=== PATIENT | male | born 1980 | race Caucasian/White ===

== ENCOUNTER → 2019-09-05 18:08 | Outpatient (BNVA) | payer BC, SELFPAY | PROVIDERS: Family Provider Counselor Professional; Visit Provider Nurse Practitioner Family | DX: S89.91XA Unspecified injury of right lower leg, initial encounter (principal); X58.XXXA Exposure to other specified factors, initial encounter | CPT/HCPCS: 73562 ==

== ENCOUNTER → 2020-05-12 12:43 | Outpatient (BNVA) | payer BC, SELFPAY | PROVIDERS: Family Provider Counselor Professional; Visit Provider Nurse Practitioner Family | DX: L57.0 Actinic keratosis (principal); N39.0 Urinary tract infection, site not specified; R35.1 Nocturia | CPT/HCPCS: 81000; 84154 ==

== ENCOUNTER → 2020-11-26 08:45 | Outpatient (BNVA) | payer OTHER, SELFPAY | PROVIDERS: Family Provider Counselor Professional; Visit Provider Counselor Professional | DX: F31.12 Bipolar disorder, current episode manic without psychotic features, moderate (principal) | CPT/HCPCS: 90791 ==

== ENCOUNTER → 2020-12-24 12:03 | Outpatient (BNVA) | payer OTHER, SELFPAY | PROVIDERS: Family Provider Counselor Professional; Visit Provider Psychiatry & Neurology Psychiatry | DX: Z03.89 Encounter for observation for other suspected diseases and conditions ruled out (principal); Z72.820 Sleep deprivation; F10.11 Alcohol abuse, in remission; F41.9 Anxiety disorder, unspecified; F17.200 Nicotine dependence, unspecified, uncomplicated; Z79.899 Other long term (current) drug therapy | CPT/HCPCS: 80053; 80061; 83036; 84443 ==

== ENCOUNTER 2021-12-03 09:56 | Emergency (ER) | payer OTHER, SELFPAY ==
[2021-12-03 10:01] VITALS: BP 120/77; PULSE 111; RESP 16; TEMP 36.6; O2SAT 97; BMI 23.8
[2021-12-03 11:25] VITALS: BP 103/71; PULSE 96; RESP 16; O2SAT 96
--- NOTE | 2021-12-03 11:27 | CT_ITS ---
WS: [id number] CT HEAD TECHNIQUE: Noncontrast CT of the head obtained from the skullbase to the vertex. CLINICAL INFORMATION: eval for mass COMPARISON: None. DLP: 1795.[address] scans at [facility] use at least one of these dose optimization techniques: automated e xposure control; mA and/or kV adjustment per patient size (includes targeted exams where dose is matc hed to clinical indication); or iterative reconstruction. FINDINGS: No evidence of intracranial hemorrhage or mass effect. Ventricular system and basal cisterns are michele nt. No extra-axial fluid collections. No evidence of mass or mass effect. Normal osborne-white different iation. Paranasal sinuses and mastoid air cells are well aerated. .Normal visualized soft tissues. CT/CT head wo con* [id number] IMPRESSION: 1. No evidence of intracranial hemorrhage or mass effect. 2. Normal osborne-white differentiation. 3. No acute intracranial findings.
--- NOTE | 2021-12-03 11:27 | W.ED.GENADLT ---
HPI - General Adult General: Chief complaint: General Medical Stated complaint: loss of appetite / double vision Time Seen by Provider: 12/03/21 11:04 History of Present Illness: Patient is a 41-year-old male with history of BPH currently waiting for TURP procedure presenting to the emergency room with multiple complaints today including floaters in vision, occasional word finding difficulty, monocular double vision, and occasional loss of depth perception. Patient tells me for the last 9 months, he has had right-sided monocular diplopia that comes on intermittently lasting for few seconds at a time. In the last month, patient has noted significant photophobia to bright light and has occasionally noticed spiders and floaters in his eyes. Patient denies any curtain falling sensation, amaurosis fugax, significant eye pain, binocular diplopia, focal weakness in the arms or legs, facial droop or slurring of speech. Patient tells me that he is anxious about getting his TURP procedure for his enlarged prostate. Patient tells me that occasionally when he is driving symptoms he cannot see depth perception in either of his eyes. Earlier last week, patient was talking to a coworker when suddenly he had difficulty finding words and his coworker could not comprehend him. Patient is concerned about that. Patient was unclear how long that lasted for. Onset:chronic Duration:ongoing Location:home Severity:moderate Associated symptoms: Deny chest pain, dyspnea, nausea, rash, palpitations or vomiting Review of Systems Const: Denies: fever(s) or chills Eyes: Reports: change in vision, photophobia, floaters, seeing flashes and other (+loss of depth perception) ENMT: Denies: mouth pain Card: Denies: chest pain or palpitations Resp: Denies: dyspnea or non-productive cough GI: Denies: abdominal pain, nausea, vomiting or diarrhea : Denies: dysuria Musc: Denies: extremity pain Skin/Breast: Denies: rash or new lesions Neuro: Reports: other (+occasional word finding difficulty); Denies: weakness in extremities Psych: Reports: other (Normal mood) [place]/Lymph: Denies: easy bruising PFS ED PFSH: Medical History Alcohol use disorder, mild, in sustained remission, abuse Anxiety Family History Denies family history of Diabetes Dementia Hypertension Social History Smoking and tobacco status: current every day smoker Alcohol intake: never Physical Exam Const: COMMON NORMALS: alert HENMT: COMMON NORMALS: atraumatic HEAD & SCALP: atraumatic MOUTH: moist mucous membranes not abnormal Eye: COMMON NORMALS: EOMs intact bilaterally and conjunctivae normal CONJUNCTIVA: Yes conjunctivae normal OTHER: 20/30 R eye 20/30 L eye Neck/C-Spine: COMMON NORMALS: full ROM and supple Resp: COMMON NORMALS: normal respiratory effort and clear to auscultation bilaterally AUSCULTATION: clear to auscultation bilaterally Cardio: COMMON NORMALS: regular rate RATE: regular rate GI: COMMON NORMALS: Soft to palpation and non-tender PALPATION: Yes Soft to palpation Extremity: COMMON NORMALS: full ROM Neuro: SENSORIUM/ORIENTATION: Yes alert MOTOR EXAM: No Abnormal motor strength present and Other motor observations present (no focal motor deficits) OTHER: Mental status? Awake, alert, and oriented to self, year, month, location, and situation.? Following simple axial and appendicular commands.? Has appropriate fund of knowledge, comprehension, and insight.? Able to recall and understands pertinent aspects of medical history and current treatment status.? ? Language? Speech is fluent without word-finding difficulties.? Intact naming, expression, salon receptionist, and repetition.? ? Cranial nerves? 2,3,4,6: PERRL, EOMI with no nystagmus. 5: Intact sensation to light touch, symmetric? 7: Smile symmetrical, no facial droop.? 8: Hearing grossly intact.? 9,10: Normal palate movement.? 11: Normal strength in trapezius bilaterally 12: Tongue protrudes midline.? ? Motor examination? Normal bulk & tone. Strength as follows (R/L): Delts (5/5), Biceps (5/5), Triceps (5/5), Wrist ext (5/5), hip flexors (5/5), plantarflexors (5/5), dorsiflexors (5/5). ? Sensation? Light Touch: Grossly intact and equal in upper and lower extremities bilaterally? Romberg: Negative.? Distal joint position sense intact ? Coordination? [id number]-[id number]-finger movements intact without dysmetria or past-pointing.? Rapid fingertaps: preserved amplitude without decriment.? No tremor, myoclonus or truncal ataxia.? ? Gait/stance? Steady, normal narrow base gait with appropriate arm swing and turning.? Tandem gait without hesitation or loss of balance. Psych: COMMON NORMALS: speech normal SPEECH: Yes normal speech MOOD & AFFECT: Yes euthymic mood Course Vital Signs: Vital signs: Vital Signs Temperature 98 F 12/03/21 10:01 Pulse Rate 91 12/03/21 13:00 Respiratory Rate 16 12/03/21 13:00 Blood Pressure 110/69 12/03/21 13:00 Pulse Oximetry 98 12/03/21 13:00 [facility] - General Adult Medical Decision Making 41-year-old male presents emergency room with complaints of multiple ocular complaints and word finding difficulty which has been going >4 weeks. On physical exam, patient is neurologically intact. Vision is 20 out of 20 in both eyes today. Lab work-up is unremarkable. Patient appears to be hemoconcentrated based on lab and urine. Patient received [address] head is negative for any acute findings of mass. At the present time, do not suspect stroke/TIA, retinal detachment, acute CRAO/CRVO, or acute occular pathologies. I have given patient follow up with our family caseworker to be seen by our outpatient Ophthalmology. Patient aware of a call from our family caseworker to schedule for appointment(s) and verbalizes understanding of the importance of following up. Disposition: Discharge. Patient counseled regarding diagnostic impression, treatment plan. Patient given ED strict return precautions to return for continuation, worsening, or development of new symptoms. Instructed to f/u w/ Otphalmology regarding symptoms today. Patient verbalized understanding. Patient is given strict return precaution for any signs of visual blindness, binocular diplopia, focal weakness in the arms or legs, significant headache, eye pain/redness, blindness, or any new concerning complaints. Lab Data : 12/03/21 11:25 12/03/21 12:[address] 12/03/21 11:27 IMPRESSION: 1. No evidence of intracranial hemorrhage or mass effect. 2. Normal osborne-white differentiation. 3. No acute intracranial findings. Laboratory Results WBC 5.8 10^3/uL (4.0-10.0) 12/03/21 11:25 RBC 5.82 10^6/uL (4.1-5.3) H 12/03/21 11:25 Hgb 17.6 g/dL (11.7-16.6) H 12/03/21 11:25 Hct 51.3 % (42.0-52.0) 12/03/21 11:25 MCV 88.1 fl (80-94) 12/03/21 11:25 MCH 30.2 pg (28.0-34.0) 12/03/21 11:25 MCHC 34.3 g/dL (30.0-36.0) 12/03/21 11:25 RDW 13.2 % (12.1-15.1) 12/03/21 11:25 Plt Count 249 10^3/cmm (130-400) 12/03/21 11:25 MPV 9.7 fL (7.4-10.4) 12/03/21 11:25 Neut % (Auto) 53.2 % 12/03/21 11:25 Lymph % (Auto) 27.8 % 12/03/21 11:25 [place] % (Auto) 8.7 % 12/03/21 11:25 Eos % (Auto) 9.5 % 12/03/21 11:25 Baso % (Auto) 0.5 % 12/03/21 11:25 Neut # (Auto) 3.06 10^3/uL (1.8-7.7) 12/03/21 11:25 Lymph # (Auto) 1.6 10^3/uL (0.8-4.8) 12/03/21 11:25 [place] # (Auto) 0.5 10^3/uL (0.2-0.9) 12/03/21 11:25 Eos # (Auto) 0.6 10^3/uL (0.0-0.8) 12/03/21 11:25 Baso # (Auto) 0.0 10^3/uL (0.0-0.1) 12/03/21 11:25 Nucleated RBC % (auto) 0 % 12/03/21 11:25 Nucleated RBCs # 0.0 /100WBC 12/03/21 11:25 Sodium 139 mmol/L (136-145) 12/03/21 12:13 Potassium 4.4 mmol/L (3.5-5.1) 12/03/21 12:13 Chloride 106 mmol/L (98-107) 12/03/21 12:13 Carbon Dioxide 26 mmol/L (22-29) 12/03/21 12:13 Anion Gap 11.4 (5-19) 12/03/21 12:13 BUN 17 mg/dL (6-20) 12/03/21 12:13 Creatinine 1.0 mg/dL (0.7-1.2) 12/03/21 12:13 GFR Calculation 81.9 mL/min (90-130) L 12/03/21 12:13 Glucose 97 mg/dL (65-115) 12/03/21 12:13 Calculated Osmolality 289 mOsm/kg (285-295) 12/03/21 12:13 Calcium 8.8 mg/dL (8.5-10.5) 12/03/21 12:13 Total Bilirubin 1.3 mg/dL (0.15-1.2) H 12/03/21 12:13 AST 19 U/L (0-40) 12/03/21 12:13 ALT 34 U/L (0-41) 12/03/21 12:13 Alkaline Phosphatase 60 IU/L (40-130) 12/03/21 12:13 Total Protein 5.7 g/dL (6.6-8.7) L 12/03/21 12:13 Albumin 3.8 g/dL (3.5-5.2) 12/03/21 12:13 Globulin 1.9 g/dL (1.3-4.6) 12/03/21 12:13 Lipase 33 U/L (13-60) 12/03/21 12:13 Urine Color Dark yellow (Yellow) 12/03/21 11:18 Urine Appearance Clear (CLEAR) 12/03/21 11:18 Urine pH 5 (5-7) 12/03/21 11:18 Ur Specific [place] 1.015 (1.005-1.030) 12/03/21 11:18 Urine Protein Neg (Negative) 12/03/21 11:18 Urine Glucose (UA) Norm (Normal) 12/03/21 11:18 Urine Ketones 1+ (Negative) H 12/03/21 11:18 Urine Blood Neg (Negative) 12/03/21 11:18 Urine Nitrate Negative (Negative) 12/03/21 11:18 Urine Bilirubin Neg (Negative) 12/03/21 11:18 Urine Urobilinogen Neg mg/dL (Negative) 12/03/21 11:18 Ur Leukocyte Esterase Negative (Negative) 12/03/21 11:18 Imaging Data Other Imaging: Radiologist's impression: [address] [address] [address] Scan Report Signed Patient: Jared Zazueta Unit #: [id number] : 1980 Age/Sex: 41 / M ADM Date: 12/03/21 Loc: ER Room/Bed: Attending Dr: Ordering Provider/Ordering MD: Sukumar Romero MD Date of Service: 12/03/21 Procedure(s): CT head wo con* [id number] Accession Number(s): [id number] Report Number: [id number] WS: [id number] CT HEAD TECHNIQUE: Noncontrast CT of the head obtained from the skullbase to the vertex. CLINICAL INFORMATION: eval for mass COMPARISON: None. DLP: 1795.[address] scans at [facility] use at least one of these dose optimization techniques: automated exposure control; mA and/or kV adjustment per patient size (includes targeted exams where dose is matched to clinical indication); or iterative reconstruction. FINDINGS: No evidence of intracranial hemorrhage or mass effect. Ventricular system and basal cisterns are patent. No extra-axial fluid collections. No evidence of mass or mass effect. Normal osborne-white differentiation. Paranasal sinuses and mastoid air cells are well aerated. .Normal visualized soft tissues. CT/CT head wo con* [id number] IMPRESSION: ? 1.? No evidence of intracranial hemorrhage or mass effect. 2.? Normal osborne-white differentiation. 3.? No acute intracranial findings. ? Dictated By: Paco Millard MD Signed By: Paco Millard MD Signed Date/Time: 12/03/21 1328 DD/ 1324 Discharge Plan Discharge Patient Disposition: Home Clinical Impression: Photophobia, Visual blurriness, Word finding problem Condition: Stable Prescriptions: No Action naproxen 500 mg tablet 500 mg PO BID PRN (Reason: pain) Qty: 30 0RF fluticasone propion-salmeterol [Advair Diskus] 100-50 mcg/dose blister with device 1 inh INHALATION BID Qty: 60 3RF albuterol sulfate 90 mcg/actuation HFA aerosol inhaler 2 puff INHALATION QID Qty: 18 2RF trazodone 50 mg tablet 50 mg PO DAILY 30 Days Qty: 30 3RF Rx Instructions: take a-half or whole tab po HS prn sleep. tamsulosin 0.4 mg capsule See Rx Instructions .ROUTE .COMPLEX Qty: 30 3RF Dose Instruction: TAKE ONE CAPSULE BY MOUTH DAILY Rx Instructions: TAKE ONE CAPSULE BY MOUTH DAILY Discharge Orders: Discharge ED (Routine); Ordered 12/03/21 Ordered By: Sukumar Romero Referrals: Erlinda Ho LPC [Therapist] - Jordan Stock MD [Physician] - Discharge Diet: Advance as tolerated Discharge Activity: Increase activity as tolerated Activity Restrictions/Additional Instructions: Our family caseworker will have you follow-up with Dr. Chaves in the next few days for your vision changes. You would be expected to have a phone call with our family caseworker who will put you on the schedule. You can expect a call from us in the next 2-3 days. If you don't hear from us, call us back in the emergency room at [phone]. Come back to the emergency room for any visual blindness, double vision in both eyes, significant eye pain, curtain falling sensation, or any new concerning complaints. Coding Level of Care Code ED Cattle Sorter for Abhi Galindo Exam Comprehensive
[2021-12-03 11:38] LABS: Add Urine Microscopic? NO; Charge for UA Resulting for Rev
[2021-12-03 11:40] LABS: Basophils % 0.5 %; Eosinophils # 0.6 10^3/uL (0.0-0.8); Eosinophils % 9.5 %; Hematocrit 51.3 % (42.0-52.0); Hemoglobin 17.6 g/dL (11.7-16.6); Lymphocytes # 1.6 10^3/uL (0.8-4.8); Lymphocytes % 27.8 %; Mean Corpuscular HGB Conc 34.3 g/dL (30.0-36.0); Mean Corpuscular Hemoglobin 30.2 pg (28.0-34.0); Mean Corpuscular Volume 88.1 fl (80-94); Mean Platelet Volume 9.7 fL (7.4-10.4); Monocytes # 0.5 10^3/uL (0.2-0.9); Monocytes % 8.7 %; Neutrophils # 3.06 10^3/uL (1.8-7.7); Neutrophils % 53.2 %; Nucleated Red Blood Cells % 0 %; Platelet Count 249 10^3/cmm (130-400); Red Blood Count 5.82 10^6/uL (4.1-5.3); Red Cell Distribution Width 13.2 % (12.1-15.1); White Blood Count 5.8 10^3/uL (4.0-10.0)
[2021-12-03 11:49] LABS: Bilirubin Urine Neg (Negative); Blood Urine Neg (Negative); Glucose Urine UA Norm (Normal); Ketones Urine 1+ (Negative); Leukocyte Esterase Urine Negative (Negative); Nitrate Urine Negative (Negative); Protein Urine Neg (Negative); Specific Gravity, Urine 1.015 (1.005-1.030); Urine Appearance Clear (CLEAR); Urine Color Dark Yellow (Yellow); Urobilinogen Urine Neg (Negative); pH Urine 5 (5-7)
[2021-12-03] MEDS: sodium chloride 0.9% 1,000 ML 999 ML IV (11:56)
[2021-12-03 12:57] LABS: Alanine Aminotransferase 34 U/L (0-41); Albumin Level 3.8 g/dL (3.5-5.2); Alkaline Phosphatase 60 IU/L (40-130); Anion Gap 11.4 (5-19); Aspartate Amino Transferase 19 U/L (0-40); Blood Urea Nitrogen 17 mg/dL (6-20); Calcium 8.8 mg/dL (8.5-10.5); Carbon Dioxide 26 mmol/L (22-29); Chloride 106 mmol/L (98-107); Globulin 1.9 g/dL (1.3-4.6); Glomerular Filtration Rate 81.9 mL/min (90-130); Glucose 97 mg/dL (65-115); Lipase 33 U/L (13-60); Osmolality Calculated 289 mOsm/kg (285-295); Potassium 4.4 mmol/L (3.5-5.1); Sodium 139 mmol/L (136-145); Total Bilirubin 1.3 mg/dL (0.15-1.2); Total Protein 5.7 g/dL (6.6-8.7)
[2021-12-03 13:00] VITALS: BP 110/69; PULSE 91; RESP 16; O2SAT 98
--- NOTE | 2021-12-04 11:04 | DCPLANNER ---
Addendum entered by Adirana Hendrix 12/08/21 09:59: digital account manager called the office of Dr. Chaves to confirm if an appointment had been scheduled for patient. digital account manager was told that clinic had tried to reach patient, and was unable to speak with patient or leave a voicemail for patient. Case manger was unable to reach patient. Original Note: digital account manager had message to schedule a follow up appointment for patient with otphalmology for vision changes. digital account manager faxed patients information to the office of Dr. Chaves. Clinic will call patient with appointment information.
== END 2021-12-03 14:01 | disposition home or self-care (01) ==
PROVIDERS: Emergency Provider Emergency Medicine
DX: H53.149 Visual discomfort, unspecified (principal); N40.0 Benign prostatic hyperplasia without lower urinary tract symptoms; F17.210 Nicotine dependence, cigarettes, uncomplicated; H53.8 Other visual disturbances
CPT/HCPCS: 70450; 80053; 81003; 83690; 85025; 96360; 99284; J7030

== ENCOUNTER 2021-12-18 20:49 | Inpatient (IN) | payer OTHER, SELFPAY ==
[2021-12-18 21:13] VITALS: BP 113/81; PULSE 115; RESP 20; TEMP 36.3; O2SAT 97
--- NOTE | 2021-12-18 22:33 | XRR_ITS ---
PROCEDURE INFORMATION: Exam: XR Chest Exam date and time: 12/18/2021 10:53 PM Age: 41 years old Clinical indication: Pain; Shortness of breath; Chest pressure; Patient HX: C/O general chest discomfort with SOB. TECHNIQUE: Imaging protocol: XR of the chest. Views: 1 view. COMPARISON: No relevant prior studies available. FINDINGS: Tubes, catheters and devices: securities compliance examiner overlying the left upper thorax. Lungs: No consolidation. Pleural spaces: No pleural effusion. No pneumothorax. Heart/Mediastinum: No cardiomegaly. Bones/joints: Unremarkable. XR/XR chest 1V portable [id number] IMPRESSION: No acute abnormality demonstrated.
--- NOTE | 2021-12-18 22:34 | ECG_ITS ---
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 Measurements Intervals [place] Rate: 113 P: 58 CO: 139 QRS: 23 QRSD: 94 T: 152 QT: 328 QTc: 451 Interpretive Statements SINUS TACHYCARDIA LEFT ATRIAL ENLARGEMENT [-0.15mV P-WAVE IN V1/V2] ST DEVIATION AND MODERATE T-WAVE ABNORMALITY, CONSIDER LATERAL ISCHEMIA [-0.1+ mV T-WAVE IN I/aVL/V5/V6] No previous ECG available for comparison Electronically Signed On 12-19-2021 21:56:06 CDT by Bessie Pandya M.D. [id number]
[2021-12-18 22:35] VITALS: BP 112/96; PULSE 110; RESP 14; O2SAT 95
[2021-12-18 23:17] VITALS: BP 123/88; PULSE 110; RESP 17; O2SAT 93
[2021-12-18 23:19] LABS: Basophils # 0.1 10^3/uL (0.0-0.1); Basophils % 0.7 %; Eosinophils # 0.2 10^3/uL (0.0-0.8); Eosinophils % 2.5 %; Hematocrit 52.4 % (42.0-52.0); Lymphocytes # 1.5 10^3/uL (0.8-4.8); Lymphocytes % 21.8 %; Mean Corpuscular HGB Conc 34.4 g/dL (30.0-36.0); Mean Corpuscular Hemoglobin 30.1 pg (28.0-34.0); Mean Corpuscular Volume 87.6 fl (80-94); Mean Platelet Volume 9.9 fL (7.4-10.4); Monocytes # 0.5 10^3/uL (0.2-0.9); Monocytes % 7.8 %; Neutrophils # 4.53 10^3/uL (1.8-7.7); Neutrophils % 66.9 %; Nucleated Red Blood Cells % 0 %; Platelet Count 226 10^3/cmm (130-400); Red Blood Count 5.98 10^6/uL (4.1-5.3); Red Cell Distribution Width 12.8 % (12.1-15.1); White Blood Count 6.8 10^3/uL (4.0-10.0)
--- NOTE | 2021-12-18 23:25 | ED_ITS ---
HPI - SOB/Dyspnea General: Chief Complaint: Shortness of Breath/Dyspnea Stated Complaint: CP, SOB Time Seen by Provider: 12/18/21 22:06 Source: patient and family History of Present Illness: HPI Narrative: 41-year-old male presenting with shortness of breath. He states he has had the symptoms for several weeks, with no answer. He has mild chest discomfort with it, although he denies significant chest pain. He says the episodes of shortness of breath seem to come and go. He seems to be better in the morning, but when getting out of bed, they start happening. He was diagnosed with enlarged prostate recently, and has a surgery scheduled for next week. He denies anxiety over the procedure. He has been seen twice prior for similar symptoms, was seen last week in an outside ER, and a loop recorder was placed on his chest. He has noted tachycardia at home, as well as episodes of decreased oxygen saturation by pulse ox monitoring. He denies significant cough, fever. He at one point had lost 20 to 30 pounds, but has gained some of that back after being placed on stomach medicine by the other doctor in the emergency room. MD elicited complaint: shortness of breath Onset (ago): week(s) Timing: intermittent Severity: moderate Exacerbating factors: exertion Relieving factors: nothing Known history of: other Associated symptoms: Reports abdominal pain, diaphoresis, dizziness, nausea and palpitations; Deny chest congestion, chest pain, cough, fever(s) or vomiting Treatment prior to arrival: other Review of Systems Const: Reports: diaphoresis; Denies: fever(s) Eyes: Reports: change in vision (See previous ER note. This seems to have resolved he says) ENMT: Denies: throat pain Card: Reports: palpitations; Denies: chest pain Resp: Reports: dyspnea; Denies: productive cough, non-productive cough or chest congestion GI: Reports: abdominal pain and nausea; Denies: vomiting : Reports: difficulty urinating; Denies: flank pain Musc: Denies: neck pain Skin/Breast: Denies: rash Neuro: Reports: dizziness Endo: Reports: tired all the time [facility] ED PFSH: Medical History Alcohol use disorder, mild, in sustained remission, abuse Anxiety Family History Denies family history of Diabetes Dementia Hypertension Social History Smoking and tobacco status: current every day smoker Alcohol intake: never Physical Exam Const: GENERAL APPEARANCE: cooperative and anxious; not frail appearing HENMT: COMMON NORMALS: normocephalic, atraumatic and Normal external nose present HEAD & SCALP: normocephalic and atraumatic FACE & SINUS: normal facial exam NOSE: Normal external nose present and Normal nares present THROAT: posterior oropharynx normal Eye: COMMON NORMALS: Equal, round and reactive pupils present and EOMs intact bilaterally PUPIL: Yes Equal, round and reactive pupils present Chest: COMMONS NORMALS: normal inspection of the chest Resp: COMMON NORMALS: normal respiratory effort, No use of accessory muscles and clear to auscultation bilaterally AUSCULTATION: clear to auscultation bilaterally Cardio: COMMON NORMALS: regular rhythm RATE: tachycardic RHYTHM: regular rhythm GI: COMMON NORMALS: Normal to inspection, nondistended, normoactive bowel sounds present and Soft to palpation PALPATION: Yes Soft to palpation Extremity: COMMON NORMALS: normal to inspection and no pedal edema Neuro: FELICITAS COMA SCALE: document GCS findings Felicitas coma scale eye opening: Spontaneous Felicitas coma scale verbal response: Orientated [place] coma scale motor response: Obey commands Felicitas coma scale total score: 15 Course Consultations: Consultation #1: nataliia Time: 01:14 Vital Signs: Vital signs: Vital Signs Temperature 97.4 F L 12/18/21 21:13 Pulse Rate 110 H 12/18/21 23:17 Respiratory Rate 17 12/18/21 23:17 Blood Pressure 123/88 12/18/21 23:17 Pulse Oximetry 93 12/18/21 23:17 MDM - SOB/Dyspnea Medical Decision Making Patient remains tachycardic at rest with rates from 95-1 15. His oxygen saturation is 90% on room air. Chest x-ray is negative. No leukocytosis. No fever. His BNP is significantly elevated for 41-year-old at 2300. His creatinine is 1.2. Mild elevation in liver enzymes including bilirubin of 1.9. His D-dimer is 1.9. He has a history of airway problems after receiving IV contrast. He would likely need a VQ scan. He notes that he has had 1 of these at [facility] recently. We will attempt to gain those records. He did not have an echocardiogram. He will require that. He will be admitted for hypoxic respiratory failure. Lab Data : 12/18/21 23:11 12/18/21 23:28 Labs/Radiology: Radiology Impressions Chest X-Ray 12/18/21 22:33 IMPRESSION: No acute abnormality demonstrated. Laboratory Results WBC 6.8 10^3/uL (4.0-10.0) 12/18/21 23:11 RBC 5.98 10^6/uL (4.1-5.3) H 12/18/21 23:11 Hgb 18.0 g/dL (11.7-16.6) H 12/18/21 23:11 Hct 52.4 % (42.0-52.0) H 12/18/21 23:11 MCV 87.6 fl (80-94) 12/18/21 23:11 MCH 30.1 pg (28.0-34.0) 12/18/21 23:11 MCHC 34.4 g/dL (30.0-36.0) 12/18/21 23:11 RDW 12.8 % (12.1-15.1) 12/18/21 23:11 Plt Count 226 10^3/cmm (130-400) 12/18/21 23:11 MPV 9.9 fL (7.4-10.4) 12/18/21 23:11 Neut % (Auto) 66.9 % 12/18/21 23:11 Lymph % (Auto) 21.8 % 12/18/21 23:11 [place] % (Auto) 7.8 % 12/18/21 23:11 Eos % (Auto) 2.5 % 12/18/21 23:11 Baso % (Auto) 0.7 % 12/18/21 23:11 Neut # (Auto) 4.53 10^3/uL (1.8-7.7) 12/18/21 23:11 Lymph # (Auto) 1.5 10^3/uL (0.8-4.8) 12/18/21 23:11 [place] # (Auto) 0.5 10^3/uL (0.2-0.9) 12/18/21 23:11 Eos # (Auto) 0.2 10^3/uL (0.0-0.8) 12/18/21 23:11 Baso # (Auto) 0.1 10^3/uL (0.0-0.1) 12/18/21 23:11 Nucleated RBC % (auto) 0 % 12/18/21 23:11 Nucleated RBCs # 0.0 /100WBC 12/18/21 23:11 D-Dimer 1.92 ug/mIFEU (0-0.59) H 12/18/21 23:11 Sodium 136 mmol/L (136-145) 12/18/21 23:28 Potassium 4.9 mmol/L (3.5-5.1) 12/18/21 23:28 Chloride 104 mmol/L (98-107) 12/18/21 23:28 Carbon Dioxide 22 mmol/L (22-29) 12/18/21 23:28 Anion Gap 14.9 (5-19) 12/18/21 23:28 BUN 25 mg/dL (6-20) H 12/18/21 23:28 Creatinine 1.2 mg/dL (0.7-1.2) 12/18/21 23:28 GFR Calculation 66.4 mL/min (90-130) L 12/18/21 23:28 Glucose 107 mg/dL (65-115) 12/18/21 23:28 Calculated Osmolality 287 mOsm/kg (285-295) 12/18/21 23:28 Calcium 9.3 mg/dL (8.5-10.5) 12/18/21 23:28 Total Bilirubin 1.9 mg/dL (0.15-1.2) H 12/18/21 23:28 AST 61 U/L (0-40) H 12/18/21 23:28 ALT 81 U/L (0-41) H 12/18/21 23:28 Alkaline Phosphatase 83 IU/L (40-130) 12/18/21 23:28 Troponin T Baseline 14 ng/L (0-15) 12/18/21 23:11 NT-Pro-B Natriuret Pep 2331 pg/mL (0-125) H 12/18/21 23:28 Total Protein 5.6 g/dL (6.6-8.7) L 12/18/21 23:28 Albumin 3.7 g/dL (3.5-5.2) 12/18/21 23:28 Globulin 1.9 g/dL (1.3-4.6) 12/18/21 23:28 Lipase 16 U/L (13-60) 12/18/21 23:28 TSH 1.05 uIU/mL (0.27-4.20) 12/18/21 23:28 Discharge Plan Discharge Patient Disposition: Admitted As Inpatient Clinical Impression: Respiratory failure with hypoxia Condition: Fair Prescriptions: No Action naproxen 500 mg tablet 500 mg PO BID PRN (Reason: pain) Qty: 30 0RF fluticasone propion-salmeterol [Advair Diskus] 100-50 mcg/dose blister with device 1 inh INHALATION BID Qty: 60 3RF albuterol sulfate 90 mcg/actuation HFA aerosol inhaler 2 puff INHALATION QID Qty: 18 2RF trazodone 50 mg tablet 50 mg PO DAILY 30 Days Qty: 30 3RF Rx Instructions: take a-half or whole tab po HS prn sleep. tamsulosin 0.4 mg capsule See Rx Instructions .ROUTE .COMPLEX Qty: 30 3RF Dose Instruction: TAKE ONE CAPSULE BY MOUTH DAILY Rx Instructions: TAKE ONE CAPSULE BY MOUTH DAILY Coding Level of Care Code ED Business Development for Chg Fwd Exam Comprehensive
[2021-12-18 23:34] LABS: D Dimer 1.92 ug/mIFEU (0-0.59)
[2021-12-18 23:44] LABS: Troponin(5th) Baseline 14 ng/L (0-15)
[2021-12-19] VITALS (22 sets, daily range): BP systolic 104–123; BP diastolic 69–84; PULSE 78–110; RESP 12–28; TEMP 36.4–36.8; O2SAT 91–99; BMI 38.5
[2021-12-19 00:23] LABS: Alanine Aminotransferase 81 U/L (0-41); Albumin Level 3.7 g/dL (3.5-5.2); Alkaline Phosphatase 83 IU/L (40-130); Anion Gap 14.9 (5-19); Aspartate Amino Transferase 61 U/L (0-40); Blood Urea Nitrogen 25 mg/dL (6-20); Calcium 9.3 mg/dL (8.5-10.5); Carbon Dioxide 22 mmol/L (22-29); Chloride 104 mmol/L (98-107); Globulin 1.9 g/dL (1.3-4.6); Glomerular Filtration Rate 66.4 mL/min (90-130); Glucose 107 mg/dL (65-115); Lipase 16 U/L (13-60); NT Pro B Type Natriuretic Pept 2331 pg/mL (0-125); Osmolality Calculated 287 mOsm/kg (285-295); Potassium 4.9 mmol/L (3.5-5.1); Sodium 136 mmol/L (136-145); Thyroid Stimulating Hormone 1.05 uIU/mL (0.27-4.20); Total Bilirubin 1.9 mg/dL (0.15-1.2); Total Protein 5.6 g/dL (6.6-8.7)
--- NOTE | 2021-12-19 00:34 | ECG_ITS ---
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 Measurements Intervals [place] Rate: 95 P: 60 [place]: 142 QRS: 38 QRSD: 94 T: 171 QT: 341 QTc: 429 Interpretive Statements SINUS RHYTHM LEFT ATRIAL ENLARGEMENT [-0.15mV P-WAVE IN V1/V2] NONSPECIFIC T-WAVE ABNORMALITY Compared to ECG 12/18/2021 22:55:04 Sinus tachycardia no longer present Possible ischemia no longer present T-wave abnormality still present Electronically Signed On 12-19-2021 22:01:41 CDT by Bessie Pandya M.D. [email or web address]
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
[2021-12-19 02:12] LABS: Troponin 5 2HR 14.51 ng/L (0-15)
--- NOTE | 2021-12-19 02:12 | CTR_ITS ---
PROCEDURE INFORMATION: Exam: CT Chest Without Contrast; Diagnostic Exam date and time: 12/19/2021 3:10 AM Age: 41 years old Clinical indication: Pain; Other: N/a; Chest pressure; Patient HX: C/O chest discomfort. Fever. Unexplained weight loss. ; Additional info: Nocturnal fever, weigh t loss TECHNIQUE: Imaging protocol: Diagnostic computed tomography of the chest without contrast. Radiation optimization: All CT scans at this facility use at least one of these dose optimization techniques: automated exposure control; mA and/or kV adjustment per patient size (includes targeted exams where dose is matched to clinical indication); or iterative reconstruction. COMPARISON: 1. CR (CHEST, ) 2021-12-18 22:[address] neck wo [facility] [id number] 2021-12-19 03:07 RADIATION DOSE METRICS: Total DLP (mGy-cm): 1196.16 FINDINGS: Lungs: Mild peribronchial cuffing. No consolidation. No masses. Pleural spaces: Small right-sided pleural effusion. Trace left-sided pleural effusion. Heart: Moderate cardiomegaly, pronounced for age. Lymph nodes: Unremarkable. No enlarged lymph nodes. Vasculature: Unremarkable. No aortic aneurysm. Bones/joints: Unremarkable. No acute fracture. Soft tissues: Unremarkable. PROCEDURE INFORMATION: Exam: CT Abdomen And Pelvis Without Contrast Exam date and time: 12/19/2021 3:10 AM Age: 41 years old Clinical indication: Pain; Other: N/a; Chest pressure; Patient HX: C/O chest discomfort. Fever. Unexplained weight loss. ; Additional info: Nocturnal fever, weigh t loss TECHNIQUE: Imaging protocol: Computed tomography of the abdomen and pelvis without contrast. Radiation optimization: All CT scans at this facility use at least one of these dose optimization techniques: automated exposure control; mA and/or kV adjustment per patient size (includes targeted exams where dose is matched to clinical indication); or iterative reconstruction. COMPARISON: 1. CR (CHEST, ) 2021-12-18 22:[address] neck wo [facility] [id number] 2021-12-19 03:07 RADIATION DOSE METRICS: Total DLP (mGy-cm): 1196.16 FINDINGS: Liver: Periportal edema. No obvious liver masses. Gallbladder and bile ducts: Gallbladder wall thickening and or pericholecystic fluid. No radiopaque stones. Probably secondary to edema, however in the event there is right upper quadrant pain, correlate with ultrasound. Pancreas: Normal. No ductal dilation. Spleen: Normal. No splenomegaly. Adrenal glands: Normal. No mass. Kidneys and ureters: Bilateral nonobstructing nephrolithiasis with small calculi measuring up to 4 mm. 1 cm benign simple right inferior renal pole cyst. Stomach and bowel: Unremarkable. No obstruction. No mucosal thickening. Appendix: No evidence of appendicitis. Intraperitoneal space: Small amount of free fluid, likely from third-spacing. Vasculature: Unremarkable. No abdominal aortic aneurysm. Lymph nodes: Unremarkable. No enlarged lymph nodes. Urinary bladder: Unremarkable as visualized. Reproductive: Unremarkable as visualized. Bones/joints: Unremarkable. No acute fracture. Soft tissues: Unremarkable. CT/CT chest abd pel wo con IMPRESSION: 1. Small right-sided pleural effusion. Trace left-sided pleural effusion. 2. Moderate cardiomegaly, pronounced for age. Recommend cardiac eval. IMPRESSION: 1. Bilateral nonobstructing nephrolithiasis with small calculi measuring up to 4 mm. 2. Small amount of free fluid, likely from third-spacing. 3. Gallbladder wall thickening and or pericholecystic fluid. No radiopaque stones. Perhaps secondary to edema, however in the event there is right upper quadrant pain, correlate with ultrasound. COMMENTS: Consistent with the [employer]'s Incidental Findings Committee white paper (J Am Lili Radiol 2018): Any incidental renal lesion less than 1 cm or classified as too small to characterize, or any incidental cystic renal lesion characterized as simple-appearing, is likely benign. No follow-up imaging is recommended for these lesions per consensus recommendations based on imaging criteria.
--- NOTE | 2021-12-19 02:13 | CTR_ITS ---
PROCEDURE INFORMATION: Exam: CT Neck Without Contrast Exam date and time: 12/19/2021 3:07 AM Age: 41 years old Clinical indication: Mass, lump, or swelling in neck; Bilateral; Patient HX: Submandibular swelling with fever and unexplained weight loss. ; Additional info: Submandibular lymphadenopathy, night sweats, weight loss, TECHNIQUE: Imaging protocol: Computed tomography images of the neck without contrast. Radiation optimization: All CT scans at this facility use at least one of these dose optimization techniques: automated exposure control; mA and/or kV adjustment per patient size (includes targeted exams where dose is matched to clinical indication); or iterative reconstruction. COMPARISON: CT head wo con* [id number] 12/03/2021 12:47 PM RADIATION DOSE METRICS: Total DLP (mGy-cm): 409.65 FINDINGS: Nasopharynx: Unremarkable. Oropharynx: Unremarkable. No significant tonsillar enlargement. Hypopharynx: Unremarkable. Larynx: Unremarkable. Normal epiglottis. Retropharyngeal space: Unremarkable. Submandibular/Parotid glands: Normal. Glands are normal in size. Thyroid: Normal. No enlarged or calcified nodules. Lymph nodes: Several lymph nodes are noted in the neck which do not appear enlarged. The largest is a right submandibular lymph node measuring 1 cm, nonspecific. Trachea: Visualized trachea is unremarkable. Lungs: Unremarkable as visualized. Bones/joints: Unremarkable. No acute fracture. Soft tissues: Unremarkable. No significant soft tissue swelling. CT/CT neck wo con [id number] IMPRESSION: No acute findings. No definite pathologically enlarged lymph nodes are seen.
[2021-12-19] MEDS: lactated ringers 500 ML 999 ML IV (02:30)
[2021-12-19 02:41] LABS: Amphetamines Screen Urine Negative (Negative); Barbiturates Screen Urine Negative (Negative); Benzodiazepines Screen Urine Negative (Negative); Cocaine Screen Urine Negative (Negative); Opiate Screen Urine Negative (Negative); PCP Screen Urine Negative (Negative); THC Screen Urine Negative (Negative)
--- NOTE | 2021-12-19 02:44 | NMR_ITS ---
PROCEDURE INFORMATION: Exam: OH Lung Ventilation and Perfusion Imaging Exam date and time: 12/19/2021 2:44 AM Age: 41 years old Clinical indication: Pain; Chest pressure; Patient HX: Shortness of breath for 3 weeks; Additional info: Hypoxia TECHNIQUE: Imaging protocol: Nuclear pulmonary ventilation with aerosol or gas was performed followed by perfusion. Views: Ventilation acquired with multiple projections. Perfusion acquired with multiple projections. Radiopharmaceutical: 5.5 mCi Tc-99m MAA (Macroaggregated Albumin), IV. 32.8 mCi Tc-99m DTPA (DTPA Aerosol), Inhalation. COMPARISON: CR (CHEST, ) 12/18/2021 10:53 PM FINDINGS: Ventilation: Normal. No ventilation defects. Perfusion: Normal. No perfusion defects. OH/OH pul vent and perfus* [id number] IMPRESSION: Normal perfusion. No evidence of pulmonary embolism.
--- NOTE | 2021-12-19 02:44 | USCV_ITS ---
Jared Zazueta Age: 41 Gender: M : 1980 Exam Date: 12/19/2021 10:03 Ordering Phys: Arlene Travis MD Technologist: Lalit Quigley Exam Location: [facility] [place] Indication: chf BP: 123 / 74 HR: 47 Rhythm: Sinus Technical Quality: Good MEASUREMENTS (Male / Female) Normal Values 2D ECHO LV Diastolic Diameter PLAX 6.3 cm 4.2 - 5.9 / 3.9 - 5.3 cm LV Systolic Diameter PLAX 6.2 cm IVS Diastolic Thickness 0.9 cm 0.6 - 1.0 / 0.6 - 0.9 cm IVS Systolic Thickness 1.4 cm LVPW Diastolic Thickness 1.3 cm 0.6 - 1.0 / 0.6 - 0.9 cm LVPW Systolic Thickness 1.4 cm LVOT Diameter 2.0 cm LV Ejection Fraction 2D Teich 1.4 % LV Ejection Fraction MOD 2C 12.9 % LV Ejection Fraction 2C AL 15.3 % LA Diameter 4.2 cm M-MODE LV Diastolic Diameter MM 7.5 cm 4.2 - 5.9 / 3.9 - 5.3 cm LV Systolic Diameter MM 6.9 cm LV Ejection Fraction MM Teich 17.2 % IVS Diastolic Thickness MM 1.0 cm 0.6 - 1.0 / 0.6 - 0.9 cm IVS Systolic Thickness MM 1.3 cm LVPW Diastolic Thickness MM 1.4 cm 0.6 - 1.0 / 0.6 - 0.9 cm LVPW Systolic Thickness MM 1.7 cm RV Diastolic Diameter MM 1.6 cm Aortic Annulus Diameter 1.8 cm LA Ao Ratio MM 2.4 MV E Point Septal Separation 2.6 cm DOPPLER AV Peak Velocity 85.0 cm/s LVOT Peak Velocity 32.0 cm/s AV Area Cont Eq vti 1.2 cm squared AV Area Cont Eq pk 1.2 cm squared MV Area PHT 6.5 cm squared Mitral E to A Ratio 2.9 MV E' Velocity 67.5 cm/s Mitral E to MV E' Ratio 12.7 Mitral E to LV E' Lateral Ratio 9.1 Mitral E to LV E' Septal Ratio 21.4 TR Peak Velocity 245.0 cm/s TR Peak Gradient 24.0 mmHg TV Peak E Velocity 110.0 cm/s Right Atrial Pressure 8.0 mmHg Pulmonary Artery Systolic Pressu 32.0 mmHg PV Peak Velocity 57.0 cm/s FINDINGS Left Ventricle Severe diffuse hypokinesia of the left ventricle with an ejection fraction of 14%. Mildly dilated LV cavity. Right Ventricle Normal RV size ejection fraction. TAPSE was around 1.9 cm Right Atrium Mildly increased right atrial size. Left Atrium Mildly increased left atrial size. Mitral Valve Moderately severe mitral valve regurgitation. Minimally thickened mitral valve Aortic Valve Thickened aortic valve. Tricuspid Valve Possibly severe tricuspid regurgitation. Minimally thickened tricuspid valve Pulmonic Valve Mild pulmonary valve regurgitation. Pericardium Trivial pericardial effusion. Aorta Normal aortic annulus size. CONCLUSIONS Severe diffuse hypokinesia of the left ventricle with an ejection fraction of 14%. Mildly dilated LV cavity. Type III diastolic dysfunction. Mild biatrial enlargement. Possibly severe tricuspid regurgitation. Moderately severe mitral valve regurgitation. Minimally thickened aortic, mitral and tricuspid leaflets No obvious masses or vegetations noted. Mild pulmonary valve regurgitation. Trivial pericardial effusion. No similar previous studies are available for comparison Dr Bessie Pandya MD [facility] (Electronically Signed) Final Date: 19 Dec 2021 12:33 S
[2021-12-19 05:10] LABS: Basophils # 0.1 10^3/uL (0.0-0.1); Basophils % 0.9 %; Eosinophils # 0.3 10^3/uL (0.0-0.8); Eosinophils % 4.8 %; Hematocrit 50.7 % (42.0-52.0); Hemoglobin 16.9 g/dL (11.7-16.6); Lymphocytes # 1.9 10^3/uL (0.8-4.8); Mean Corpuscular HGB Conc 33.3 g/dL (30.0-36.0); Mean Corpuscular Hemoglobin 29.3 pg (28.0-34.0); Mean Corpuscular Volume 87.9 fl (80-94); Mean Platelet Volume 9.8 fL (7.4-10.4); Monocytes # 0.6 10^3/uL (0.2-0.9); Monocytes % 9.3 %; Neutrophils # 3.55 10^3/uL (1.8-7.7); Neutrophils % 54.8 %; Nucleated Red Blood Cells % 0 %; Platelet Count 215 10^3/cmm (130-400); Red Blood Count 5.77 10^6/uL (4.1-5.3); Red Cell Distribution Width 12.7 % (12.1-15.1); White Blood Count 6.5 10^3/uL (4.0-10.0)
[2021-12-19 05:27] LABS: INR 1.21 (0.8-1.2); Partial Thromboplastin Time 30.1 SECONDS (23.9-36.7)
[2021-12-19 05:28] LABS: Fibrinogen 249 mg/dL (174-498)
[2021-12-19 05:30] LABS: D Dimer 1.97 ug/mIFEU (0-0.59)
[2021-12-19 05:35] LABS: Alanine Aminotransferase 70 U/L (0-41); Albumin Level 3.3 g/dL (3.5-5.2); Alkaline Phosphatase 79 IU/L (40-130); Anion Gap 14.6 (5-19); Aspartate Amino Transferase 49 U/L (0-40); Blood Urea Nitrogen 26 mg/dL (6-20); C Reactive Protein 4.5 mg/L (0.0-4.9); Calcium 9.1 mg/dL (8.5-10.5); Carbon Dioxide 23 mmol/L (22-29); Chloride 105 mmol/L (98-107); Globulin 2.5 g/dL (1.3-4.6); Glomerular Filtration Rate 73.4 mL/min (90-130); Glucose 123 mg/dL (65-115); Magnesium 1.9 mg/dL (1.7-2.3); Osmolality Calculated 292 mOsm/kg (285-295); Potassium 4.6 mmol/L (3.5-5.1); Sodium 138 mmol/L (136-145); Total Bilirubin 1.5 mg/dL (0.15-1.2); Total Protein 5.8 g/dL (6.6-8.7)
[2021-12-19 05:37] LABS: Troponin 5 6HR 14.34 ng/L (0-15)
[2021-12-19 05:49] LABS: Lactate Dehydrogenase 174 U/L (135-225)
[2021-12-19 07:13] LABS: Lipase 20 U/L (13-60)
--- NOTE | 2021-12-19 07:29 | ECG_ITS ---
[facility] Test Date: 2021-12-19 Pat Name: Jared Zazueta Department: Room: 262 Gender: Male Company Doctor: : 1980 Requested By: Arlene Travis Order Number: [id number] [place] MD: Bessie Pandya M.D. Measurements Intervals [place] Rate: 105 P: 58 OK: 147 QRS: 18 QRSD: 93 T: 203 QT: 349 QTc: 463 Interpretive Statements SINUS TACHYCARDIA POSSIBLE LEFT ATRIAL ENLARGEMENT [-0.1mV P-WAVE IN V1/V2] MODERATE T-WAVE ABNORMALITY, CONSIDER LATERAL ISCHEMIA [-0.1+ mV T-WAVE IN I/aVL/V5/V6] Compared to ECG 12/19/2021 01:38:04 Possible ischemia now present Sinus rhythm no longer present T-wave abnormality still present Electronically Signed On 12-19-2021 22:02:29 CDT by Bessie Pandya M.D. [id number]
--- NOTE | 2021-12-19 08:12 | USR_ITS ---
PROCEDURE INFORMATION: Exam: US Duplex Lower Extremity Veins, Bilateral Exam date and time: 12/19/2021 10:29 AM Age: 41 years old Clinical indication: Edema, localized; Lower extremity, bilateral; Additional info: Dvt TECHNIQUE: Imaging protocol: Real-time Duplex ultrasound of the bilateral extremities with 2-D osborne scale, color Doppler flow and spectral waveform analysis with image documentation. Complete exam focused on the bilateral lower extremity veins. COMPARISON: CT chest abd pel wo con 12/19/2021 3:10 AM FINDINGS: Right deep veins: Unremarkable. The common femoral, femoral, proximal profunda femoral and popliteal veins are patent without thrombus. Normal Doppler waveforms. Normal compressibility and/or augmentation response. Right superficial veins: Saphenofemoral junction is patent without thrombus. Left deep veins: Unremarkable. The common femoral, femoral, proximal profunda femoral and popliteal veins are patent without thrombus. Normal Doppler waveforms. Normal compressibility and/or augmentation response. Left superficial veins: Saphenofemoral junction is patent without thrombus. Soft tissues: Unremarkable. US/CV venous duplex [facility] [id number] IMPRESSION: No evidence of deep vein thrombosis.
[2021-12-19 08:40] LABS: C Reactive Protein 4.6 mg/L (0.0-4.9)
[2021-12-19 08:48] LABS: Procalcitonin 0.07 ng/mL (0-0.5)
[2021-12-19] MEDS: magnesium sulfate premix 2 GM/50 ML PIGGYBACK IV (09:42)
[2021-12-19] MEDS: enoxaparin 80 mg/0.8 mL Syringe 70 MG SUBCUT ×2 (09:43→19:48)
[2021-12-19] MEDS: FUROsemide 10 mg/mL SDV 10mL 60 MG IVP (09:44)
[2021-12-19 09:53] LABS: Erythrocyte Sedimentation Rate 1 mm/hr (0-10)
[2021-12-19 10:00] LABS: ABG PCO2 34.9 mmHg (35-45); ABG PH Result 7.47 (7.35-7.45); Arterial Blood Gas Hematocrit 52.8 % (42-52); Base Excess ABG 2.2 mmol/L (-2.0-2.0); Blood Gas Allen Test Pos; Blood Gas Sample Type Arterial; HCO3 ABG 25.4 mmol/L (22-26); PO2 ABG 88.3 mmHg (80.0-100.0)
[2021-12-19 10:01] LABS: Blood Gas Sample Site Radial, right; Oxygen Device ROOM AIR
[2021-12-19 10:10] LABS: Gamma Glutamyl Transferase 52 U/L (8-61)
[2021-12-19 10:16] LABS: Alcohol Level < 10 mg/dL (0-10)
--- NOTE | 2021-12-19 10:20 | PM.PN ---
Subjective Subjective: Patient was seen this morning, at bedside, he tells me that all his symptoms started roughly a month ago, he has been doing fine, he has not seen a physician in some time, his symptoms started off with difficulty urinating, his primary care provider thought he had a UTI was put on antibiotics but his symptoms persisted, his symptoms alternate between difficulty urinating, and urinary incontinence, so he saw a new primary care provider who referred him to urology who diagnosed him with enlarged prostate, and that he needed to have prostate surgery since then he could he have urinary symptoms however started general symptoms of fatigue, malaise, lack of energy, he was also diagnosed with an enlarged lymph node in his groin, but he is new primary care provider was hesitant about any further work-up and finally he had CT imaging which showed enlarged lymph nodes, but he was not put on any treatment, he has been to the ER for now shortness of breath, fatigue, malaise, he was diagnosed with heart failure he tells me, and he was placed on a event monitor due to tachycardia, no personal or family history of CAD, no family history of sudden cardiac , does report a couple of tick bites a few weeks ago, no HIV, no hepatitis, no drug use, no smoking, no alcohol, no history of blood clots, no recent illness, no sick contacts, Vitals/I&O/Wt Last Vital Signs Temp 97.6 F 12/19/21 07:21 Pulse 78 12/19/21 08:00 Resp 18 12/19/21 08:00 BP 110/77 12/19/21 07:21 Pulse Ox 96 12/19/21 08:00 12/18/21 12/19/21 12/19/21 22:59 06:59 14:59 Intake Total 1460 / 1460 240 / 240 Output Total 200 / 200 Balance 1260 / 1260 240 / 240 Weight last 48 hrs Weight 77.564 kg Weight 125.191 kg Weight 125.191 kg Weight 81.193 kg Physical Exam Const: COMMON NORMALS: no acute distress and patient oriented x3 Lymph: OTHER: Right-sided JVD Resp: COMMON NORMALS: normal respiratory effort, No retractions, No use of accessory muscles and clear to auscultation bilaterally AUSCULTATION: clear to auscultation bilaterally Cardio: COMMON NORMALS: regular rate, regular rhythm, S1 normal heart sound present and S2 normal heart sound present RATE: regular rate RHYTHM: regular rhythm HEART SOUNDS: S1 normal heart sound present and S2 normal heart sound present GI: COMMON NORMALS: Normal to inspection, nondistended, normoactive bowel sounds present, Soft to palpation and non-tender PALPATION: Yes Soft to palpation Extremity: COMMON NORMALS: no pedal edema Neuro: COMMON NORMALS: patient oriented x3 Psych: COMMON NORMALS: mental status grossly normal Data : 12/19/21 04:44 12/19/21 04:44 Micro: Microbiology 12/19/21 09:05 Blood Culture - Preliminary Blood SPECIMEN COLLECTED 12/19/21 09:12 Blood Culture - Preliminary Blood SPECIMEN COLLECTED A&P Assessment and plan (1) Hypoxemia: Status: Acute (2) New onset of congestive heart failure: Status: Acute (3) RHF (right heart failure): Status: Acute Plan New onset congestive heart failure CT of the chest showing cardiomegaly EF is unknown Will request echo in the morning Clinically euvolemic to dehydrated His lab work is consistent with right-sided heart failure Chest x-ray is unremarkable High BNP We will start low-dose Lasix in the morning he is na?ve to Lasix Stop naproxen Lupus panel, viral panel, tick panel, ferritin, HIV, flu panel ordered Hypoxia without respiratory failure However at the time my evaluation he was satting well on room air Hypoxia resolved He has been experiencing fatigue, weight loss, shortness of breath on exertion Start low-dose Lasix in the morning B-cell symptoms Weight loss 190 pounds to 169 pounds in last 3 to 5 weeks Weight loss, lymphadenopathy Night sweats CT scan of his neck, chest, abdomen and pelvis without contrast had no acute findings Hemoglobin 16.9, likely secondary dehydration, continue to monitor High D-dimer: Recently had VQ scan at [facility] Will request records My differential would include PE, DVT, malignancy, B-cell symptoms I will go ahead and start anticoagulating agent at this point Venous ultrasound, VQ scan ordered Sinus tachycardia It could be explained by dehydration because of emesis however with high D-dimer and shortness of breath PE/DVT has not been ruled out yet BPH: Patient has been started on tamsulosin Patient at risk of zoonotic diseases because of his line of work His abnormal liver enzymes could be explained by right-sided heart failure signs, he is not showing signs of cholangitis, Trend CMP He might benefit from ultrasound of liver Consider Brucella or leptospirosis in the differentials as well Cardiac diet DVT prophylaxis currently on therapeutic dose of Lovenox Full code Attestations Medical Necessity Statement*: Patient requires hospitalization for new onset CHF Coding Level of Care Code 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
[2021-12-19 10:25] LABS: Hepatitis A Antibody IgM Non-Reactive (Nonreactive); Hepatitis B Core IgM Non-Reactive (Nonreactive); Hepatitis B Surface Antigen Non-Reactive (Nonreactive); Hepatitis C Virus Antibody Non-Reactive (Nonreactive)
[2021-12-19 10:57] LABS: Rapid Plasma Reagin Syphilis Nonreactive (Nonreactive)
[2021-12-19 11:01] LABS: HIV 1 & 2 Antigen Non-Reactive (Non-Reactiv)
[2021-12-19 11:02] LABS: HIV 1 & 2 Antibody Non-Reactive (Non-Reactiv)
[2021-12-19 11:22] LABS: Ferritin 227 ng/mL (30-400)
[2021-12-19] MEDS: doxycycline 100 MG in sodium chloride 0.9% (plus) 100 ML IV ×2 (11:41→22:43)
[2021-12-19] MEDS: aspirin 81 mg EC Tablet PO (11:41)
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
[2021-12-19 13:32] LABS: Add Urine Microscopic? NO; Charge for UA Resulting for Rev
[2021-12-19 14:11] LABS: Bilirubin Urine Neg (Negative); Blood Urine Neg (Negative); Glucose Urine UA Norm (Normal); Ketones Urine Negative (Negative); Leukocyte Esterase Urine Negative (Negative); Nitrate Urine Negative (Negative); Protein Urine Neg (Negative); Urine Appearance Clear (CLEAR); Urine Color Yellow (Yellow); Urobilinogen Urine Norm (Negative); pH Urine 5 (5-7)
--- NOTE | 2021-12-19 14:48 | PC.NURSE ---
Called report to [facility] in [facility]. Took patient to Nuclear Med. Nuc Med will transfer patient on to [facility] 111.
[2021-12-19 15:47] LABS: Coronavirus 229E,HKU1,NL63,OC4 Not Detected (NOT DETECT); SARS-COV-2 Not Detected (NOT DETECT)
[2021-12-19 15:53] LABS: Adenovirus Not Detected (NOT DETECT)
[2021-12-19 15:54] LABS: Chlamydia Pneumoniae Not Detected (NOT DETECT); Human Metapneumovirus Not Detected (NOT DETECT); Human Rhinovirus/Enterovirus Not Detected (NOT DETECT); Influenza A Not Detected (NOT DETECT); Influenza A H1 Not Detected (NOT DETECT); Influenza A H1-2009 Not Detected (NOT DETECT); Influenza A H3 Not Detected (NOT DETECT); Influenza B Not Detected (NOT DETECT); Mycoplasma Pneumoniae Not Detected (NOT DETECT); Parainfluenza Virus Type 1 Not Detected (NOT DETECT); Parainfluenza Virus Type 2 Not Detected (NOT DETECT); Parainfluenza Virus Type 3 Not Detected (NOT DETECT); Parainfluenza Virus Type 4 Not Detected (NOT DETECT); Respiratory Syncytial Virus A Not Detected (NOT DETECT); Respiratory Syncytial Virus B Not Detected (NOT DETECT)
--- NOTE | 2021-12-19 16:02 | PC.NURSE ---
received into room 111-2 from med/surg via nuclear med,via bed,at 1525.report received.pt is alert and oriented x 4.st on monitor.ortega noted...relieved quickly with rest.room air.room air with sats 95-97%.oriented to room environment.instructed to notify staff for any sob,chest pain..or for any concerns at all.pt verb understanding of instructions
[2021-12-19] MEDS: albuterol 8 gm MDI 2 PUFF INHALATION ×2 (16:11→20:45)
[2021-12-19] MEDS: NON-FORMULARY MEDICATION (Buprenorphine Hcl 8 mg tablet, sublingual) 8 EACH SUBLINGUAL (18:00)
[2021-12-19] MEDS: metoprolol tartrate 25 mg Tablet 12.5 MG PO (18:02)
[2021-12-19] MEDS: atorvastatin 40 mg Tablet PO (19:47)
--- NOTE | 2021-12-19 21:48 | PC.NURSE ---
Dr. Travis notified that med rec dosages on Lexapro and Flomax did not get entered correctly. Ordered to change orders to match home dosage.
[2021-12-19] MEDS: tamsulosin 0.4 mg Capsule PO (21:55)
[2021-12-19] MEDS: escitalopram 10 mg Tablet 20 MG PO (21:55)
[2021-12-20] VITALS (15 sets, daily range): BP systolic 88–115; BP diastolic 69–85; PULSE 86–105; RESP 13–20; TEMP 36.2–36.5; O2SAT 91–99
--- NOTE | 2021-12-20 00:58 | PC.NURSE ---
Addendum entered by Dolores Almanzar RN 12/20/21 00:59: Continuous pulse ox monitoring. Original Note: Patient attempt to wear CPAP x2. Patient unable to tolerate and refusing, stating it makes him feel like he is suffocating. 2 L NC placed on patient while sleeping per RT.
[2021-12-20 04:36] LABS: Basophils # 0.1 10^3/uL (0.0-0.1); Basophils % 0.8 %; Eosinophils # 0.3 10^3/uL (0.0-0.8); Eosinophils % 3.9 %; Hematocrit 51.4 % (42.0-52.0); Hemoglobin 16.9 g/dL (11.7-16.6); Lymphocytes # 1.9 10^3/uL (0.8-4.8); Lymphocytes % 24.4 %; Mean Corpuscular HGB Conc 32.9 g/dL (30.0-36.0); Mean Corpuscular Hemoglobin 29.3 pg (28.0-34.0); Mean Corpuscular Volume 89.2 fl (80-94); Mean Platelet Volume 9.9 fL (7.4-10.4); Monocytes # 0.5 10^3/uL (0.2-0.9); Monocytes % 7.1 %; Neutrophils # 4.86 10^3/uL (1.8-7.7); Neutrophils % 63.5 %; Nucleated Red Blood Cells % 0 %; Platelet Count 210 10^3/cmm (130-400); Red Blood Count 5.76 10^6/uL (4.1-5.3); Red Cell Distribution Width 12.8 % (12.1-15.1); White Blood Count 7.7 10^3/uL (4.0-10.0)
[2021-12-20 05:08] LABS: Alanine Aminotransferase 57 U/L (0-41); Albumin Level 3.4 g/dL (3.5-5.2); Alkaline Phosphatase 76 IU/L (40-130); Aspartate Amino Transferase 33 U/L (0-40); Blood Urea Nitrogen 26 mg/dL (6-20); Calcium 8.8 mg/dL (8.5-10.5); Carbon Dioxide 25 mmol/L (22-29); Chloride 102 mmol/L (98-107); Creatine Phosphokinase 54 U/L (39-308); Globulin 2.1 g/dL (1.3-4.6); Glomerular Filtration Rate 66.4 mL/min (90-130); Glucose 108 mg/dL (65-115); Magnesium 2.1 mg/dL (1.7-2.3); NT Pro B Type Natriuretic Pept 2492 pg/mL (0-125); Osmolality Calculated 291 mOsm/kg (285-295); Phosphorus 3.4 mg/dL (2.5-4.5); Sodium 138 mmol/L (136-145); Total Bilirubin 1.4 mg/dL (0.15-1.2); Total Protein 5.5 g/dL (6.6-8.7)
[2021-12-20] MEDS: albuterol 8 gm MDI 2 PUFF INHALATION ×4 (07:35→19:37)
[2021-12-20] MEDS: FUROsemide 10 mg/mL SDV 10mL 40 MG IVP (09:40)
[2021-12-20] MEDS: aspirin 81 mg EC Tablet PO (09:41)
[2021-12-20] MEDS: metoprolol tartrate 25 mg Tablet 12.5 MG PO ×2 (09:41→18:19)
[2021-12-20] MEDS: spironolactone 25 mg Tablet PO (09:42)
[2021-12-20] MEDS: tamsulosin 0.4 mg Capsule PO ×2 (09:42→18:20)
[2021-12-20] MEDS: doxycycline 100 MG in sodium chloride 0.9% (plus) 100 ML IV ×2 (11:55→23:34)
--- NOTE | 2021-12-20 12:52 | P.PN_ITS ---
Subjective Subjective: Patient was seen this morning, family at bedside, he feels better, he did pee a lot yesterday with Lasix, he tells me that he did use the CPAP, last night, was difficult to use throughout the night Vitals/I&O/Wt Last Vital Signs Temp 97.5 F L 12/20/21 08:00 Pulse 98 12/20/21 11:55 Resp 16 12/20/21 11:55 BP 88/69 12/20/21 11:55 Pulse Ox 95 12/20/21 11:55 12/19/21 12/20/21 12/20/21 22:59 06:59 14:59 Intake Total 340 / 820 400 / 1220 Output Total 750 / 750 Balance 340 / 820 400 / 1220 -750 / -750 Weight last 48 hrs Weight 77.564 kg Weight 125.191 kg Weight 125.191 kg Weight 81.193 kg Physical Exam Const: COMMON NORMALS: no acute distress and patient oriented x3 HENMT: COMMON NORMALS: normocephalic HEAD & SCALP: normocephalic Resp: COMMON NORMALS: normal respiratory effort, No retractions, No use of accessory muscles and clear to auscultation bilaterally AUSCULTATION: clear to auscultation bilaterally Cardio: COMMON NORMALS: regular rate, regular rhythm, S1 normal heart sound present and S2 normal heart sound present RATE: regular rate RHYTHM: regular rhythm HEART SOUNDS: S1 normal heart sound present and S2 normal heart sound present GI: COMMON NORMALS: Normal to inspection, nondistended, normoactive bowel sounds present, Soft to palpation and non-tender PALPATION: Yes Soft to palpation Extremity: COMMON NORMALS: no pedal edema Neuro: COMMON NORMALS: patient oriented x3 Psych: COMMON NORMALS: mental status grossly normal Data : 12/20/21 04:16 12/20/21 04:16 Micro: Microbiology 12/19/21 09:05 Blood Culture - Preliminary Blood NEGATIVE TO DATE 12/19/21 09:12 Blood Culture - Preliminary Blood NEGATIVE TO DATE A&P Assessment and plan (1) Hypoxemia: Status: Acute (2) New onset of congestive heart failure: Status: Acute (3) RHF (right heart failure): Status: Acute Plan New onset congestive heart failure, systolic CHF exacerbation CT of the chest showing cardiomegaly Severe diffuse hypokinesia of the left ventricle with an ?ejection fraction of 14%. ? Mildly dilated LV cavity. ?Type III diastolic dysfunction. ?Mild biatrial enlargement. ?Possibly severe tricuspid regurgitation. ?Moderately severe mitral valve regurgitation. ?Minimally thickened aortic, mitral and tricuspid leaflets ?No obvious masses or vegetations noted. ?Mild pulmonary valve regurgitation. ?Trivial pericardial effusion. ?No similar previous studies are available for comparison Chest x-ray is unremarkable High BNP Continue low-dose Lasix Stop naproxen Lupus panel, tick panel pending Plan on cardiac stress test tomorrow morning Hypoxia without respiratory failure However at the time my evaluation he was satting well on room air Hypoxia resolved He has been experiencing fatigue, weight loss, shortness of breath on exertion Start low-dose Lasix in the morning B-cell symptoms Weight loss 190 pounds to 169 pounds in last 3 to 5 weeks Weight loss, lymphadenopathy Night sweats CT scan of his neck, chest, abdomen and pelvis without contrast had no acute findings Hemoglobin 16.9, likely secondary dehydration, continue to monitor High D-dimer: Recently had VQ scan at [facility] Will request records VQ scan low probability pulmonary emboli, venous ultrasound negative for DVT Decrease DVT prophylaxis Sinus tachycardia It could be explained by dehydration because of emesis however with high D-dimer and shortness of breath PE/DVT has not been ruled out yet BPH: Patient has been started on tamsulosin Cardiac diet DVT prophylaxis currently on therapeutic dose of Lovenox Full code Attestations Medical Necessity Statement*: Patient requires hospitalization, inpatient, greater than 2 midnights, for new onset systolic CHF exacerbation Coding Level of Care Code Acute Anesthesia Associate for g Fwd Diagnoses Hypoxemia R09.02 New onset of congestive heart failure I50.9 RHF (right heart failure) I50.810
--- NOTE | 2021-12-20 16:46 | PM.PN ---
Subjective Subjective: Patient was having some shortness of breath and epigastric pain tonight. The heart rate is coming down to the baseline. No fever or chills. No severe cough. No other specific complaints. Was found to have episode of nonsustained ventricular tachycardia of 12 beats on the telemetry, asymptomatic Medications: Medication Review Details: Current Medications Albuterol Sulfate (Albuterol 8 Gm Mdi) 2 puff INHALATION QID.RESPIRATORY [facility] Last Admin: 12/20/21 15:43 Dose: 2 puff Documented by: Albuterol/Ipratropium (Ipratropium-Albuterol 3 Ml Neb) 3 ml INHALATION Q6H PRN PRN Reason: SHORTNESS OF BREATH Aspirin (Aspirin 81 Mg Ec Tablet) 81 mg PO DAILY [facility] Last Admin: 12/20/21 09:41 Dose: 81 mg Documented by: Atorvastatin Calcium (Atorvastatin 40 Mg Tablet) 40 mg PO BEDTIME [facility] Last Admin: 12/19/21 19:47 Dose: 40 mg Documented by: Dicyclomine HCl (Dicyclomine 20 Mg Tablet) 20 mg PO QID PRN PRN Reason: Stomach Cramps Enoxaparin Sodium (Enoxaparin 40 Mg/0.4 Ml Syringe) 40 mg SUBCUT Q24H [facility] Escitalopram Oxalate (Escitalopram 10 Mg Tablet) 20 mg PO BEDTIME [facility] Last Admin: 12/19/21 21:55 Dose: 20 mg Documented by: Furosemide (Furosemide 10 Mg/Ml Sdv 10ml) 40 mg IVP Q24H [facility] Last Admin: 12/20/21 09:40 Dose: 40 mg Documented by: Doxycycline Hyclate 100 mg/ (Sodium Chloride) 100 mls @ 100 mls/hr IV Q12H [facility]; Protocol Last Admin: 12/20/21 11:55 Dose: 100 mls/hr Documented by: Metoprolol Tartrate (Metoprolol Tartrate 25 Mg Tablet) 12.5 mg PO BID [facility] Last Admin: 12/20/21 09:41 Dose: 12.5 mg Documented by: Non-Formulary Medication Escitalopram 10 Mg 1 each PO DAILY [facility] Non-Formulary Medication Buprenorphine 8 Mg 1 each SUBLINGUAL BID [facility] Non-Formulary Medication Trazodone 0.5 - 1 each PO BEDTIME PRN PRN Reason: SLEEP Non-Formulary Medication Dicyclomine 20 Mg 1 each PO Q6H [facility] Last Admin: 12/20/21 11:56 Dose: 1 each Documented by: Non-Formulary Medication Omeprazole 20mg 1 each PO DAILY [facility] Non-Formulary MedicationAdvair 100/50 1 each INHALATION BID [facility] Non-Formulary Medication Fluticasone 1 each INTRANASAL BID [facility] Non-Formulary Medication (Buprenorphine Hcl) 8 mg SUBLINGUAL BID [facility] Last Admin: 12/20/21 10:43 Dose: Not Given Documented by: Non-Formulary Medication (Omeprazole) 20 mg PO DAILY [facility] Last Admin: 12/20/21 10:44 Dose: Not Given Documented by: Non-Formulary Medication (Fluticasone Propion-Salmeterol [Advair Diskus]) 1 inh INHALATION BID [facility] Last Admin: 12/20/21 10:44 Dose: Not Given Documented by: Ondansetron HCl (Ondansetron 2 Mg/Ml Sdv 2 Ml) 4 mg IVP Q6H PRN PRN Reason: NAUSEA AND VOMITING Spironolactone (Spironolactone 25 Mg Tablet) 25 mg PO DAILY [facility] Last Admin: 12/20/21 09:42 Dose: 25 mg Documented by: Tamsulosin HCl (Tamsulosin 0.4 Mg Capsule) 0.4 mg PO BID [facility] Last Admin: 12/20/21 09:42 Dose: 0.4 mg Documented by: Trazodone HCl (Trazodone 50 Mg Tablet) 50 mg PO BEDTIME PRN PRN Reason: for sleep Vitals/I&O/Wt Last Vital Signs Temp 97.5 F L 12/20/21 08:00 Pulse 89 12/20/21 15:52 Resp 16 12/20/21 15:52 BP 104/78 12/20/21 15:06 Pulse Ox 98 12/20/21 15:52 12/20/21 12/20/21 12/20/21 06:59 14:59 22:59 Intake Total 400 / 1220 Output Total 750 / 750 1000 / 1750 Balance 400 / 1220 -750 / -750 -1000 / -1750 Weight last 48 hrs Weight 171 lb Weight 276 lb Weight 276 lb Weight 179 lb Physical Exam Narrative: GENERAL: The patient is alert and oriented times three. Not in any acute distress. Slightly tachypneic and very anxious HEENT: No significant pallor, icterus or lymphadenopathy. The pupils are reactant to light. Oral cavity: There are no mucous membrane lesions. NECK: Trachea appears to be central. No masses noted. No JVD or thyromegaly appreciated. No carotid bruit. RESPIRATORY: Chest is symmetrical. No intercostals muscle retraction or any accessory muscle activation. There is no chest wall tenderness. Breath sounds are heard bilaterally. No rales or rhonchi heard. No evidence of any consolidation. BREASTS: Deferred. HEART: The PMI is in the 5th left intercostals space just inside the midclavicular line. No palpable precordial events. S1 and S2 are normal. No S3 or S4 heard. No pericardial rub or any click heard. Systolic murmur grade 3 or 6 in the left sternal border and also in the mitral area ABDOMEN: No vessel pulsations or distention. No tenderness. No organomegaly appreciated. No abdominal bruit. Bowel sounds are normally heard. : Deferred. RECTAL: Deferred. LYMPHATIC: Enlarged cervical and inguinal lymph nodes EXTREMITIES: No edema or cyanosis. MUSCULOSKELETAL: No acute joint deformities or swelling SKIN: There are no significant scars or skin rash noted. NEUROPSYCHIATRIC: The patient is alert and oriented x3. Appears to be in a good mood. The higher functions are grossly within normal limits. No tremors or rigidity noted. Data : 12/20/21 04:16 12/20/21 04:16 Micro: Microbiology 12/19/21 09:05 Blood Culture - Preliminary Blood NEGATIVE TO DATE 12/19/21 09:12 Blood Culture - Preliminary Blood NEGATIVE TO DATE A&P Assessment and plan (1) Acute on chronic systolic heart failure: Patient currently has class III to class IV heart failure symptoms. The LV ejection fraction is around 14%. The etiology of the heart failure is not clear at this time. An infection/ ischemia causing the muscle weakness and heart failure symptoms is a consideration. Patient may be carefully treated with IV diuretics. 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 The etiology is not clear at this time. Infective etiology is a consideration. No obvious masses or vegetations are noted at this time. He may require a transesophageal echocardiogram, to better evaluate the valves, once the clinical condition is stabilized. Status: Acute (3) Cardiomyopathy: The etiology of the cardiomyopathy is no clear at this time. Ischemia is a consideration. 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 This may be scheduled for tomorrow. Based on the results, further medical decisions will be made. May start him on losartan 25 mg p.o. now and daily Status: Acute (4) Abnormal EKG: As mentioned above. Status: Acute (5) Nonsustained ventricular tachycardia: I may start the patient on Actemra 84 mg 2 tabs p.o. daily. Status: Acute Plan Patient the patient's clinical progress and the results of the above, further management decisions will be made. Attestations Medical Necessity Statement*: Patient requires continued hospital stay for close monitoring and further management Coding Level of Care Code Acute Mill Attendant for Chg Fwd History Expanded Problem Focused Exam Detailed Medical Decision Making Moderate Complexity Diagnoses Acute on chronic systolic heart failure I50.23 Disorders of both mitral and tricuspid valves I08.1 Cardiomyopathy I42.9 Abnormal EKG R94.31 Nonsustained ventricular tachycardia I47.2
[2021-12-20] MEDS: magnesium lactate 84 mg Tablet PO (18:19)
[2021-12-20] MEDS: atorvastatin 40 mg Tablet PO (20:17)
[2021-12-20] MEDS: escitalopram 10 mg Tablet 20 MG PO (20:18)
[2021-12-20 21:22] LABS: Glucose Point of Care 123 mg/dL (70-110)
[2021-12-20] MEDS: ondansetron 2 mg/ML SDV 2 mL 4 MG IVP (23:27)
[2021-12-21] VITALS (18 sets, daily range): BP systolic 80–103; BP diastolic 50–74; PULSE 59–104; RESP 12–18; TEMP 36.3–36.9; O2SAT 91–98
[2021-12-21] MEDS: simethicone 80 mg Chew PO (00:19)
[2021-12-21 05:43] LABS: Basophils # 0.1 10^3/uL (0.0-0.1); Basophils % 0.9 %; Eosinophils # 0.3 10^3/uL (0.0-0.8); Eosinophils % 3.6 %; Hematocrit 55.2 % (42.0-52.0); Hemoglobin 18.1 g/dL (11.7-16.6); Lymphocytes # 1.7 10^3/uL (0.8-4.8); Lymphocytes % 23.9 %; Mean Corpuscular HGB Conc 32.8 g/dL (30.0-36.0); Mean Corpuscular Hemoglobin 29.6 pg (28.0-34.0); Mean Corpuscular Volume 90.2 fl (80-94); Mean Platelet Volume 10.4 fL (7.4-10.4); Monocytes # 0.6 10^3/uL (0.2-0.9); Monocytes % 8.7 %; Neutrophils # 4.37 10^3/uL (1.8-7.7); Neutrophils % 62.6 %; Nucleated Red Blood Cells % 0 %; Platelet Count 214 10^3/cmm (130-400); Red Blood Count 6.12 10^6/uL (4.1-5.3); Red Cell Distribution Width 13.2 % (12.1-15.1)
[2021-12-21 06:04] LABS: Alanine Aminotransferase 70 U/L (0-41); Albumin Level 3.5 g/dL (3.5-5.2); Alkaline Phosphatase 91 IU/L (40-130); Anion Gap 13.8 (5-19); Aspartate Amino Transferase 54 U/L (0-40); Blood Urea Nitrogen 30 mg/dL (6-20); Calcium 9.1 mg/dL (8.5-10.5); Carbon Dioxide 29 mmol/L (22-29); Chloride 101 mmol/L (98-107); Globulin 2.8 g/dL (1.3-4.6); Glomerular Filtration Rate 55.6 mL/min (90-130); Glucose 97 mg/dL (65-115); Magnesium 2.3 mg/dL (1.7-2.3); Osmolality Calculated 294 mOsm/kg (285-295); Phosphorus 4.7 mg/dL (2.5-4.5); Potassium 4.8 mmol/L (3.5-5.1); Sodium 139 mmol/L (136-145); Total Bilirubin 1.4 mg/dL (0.15-1.2); Total Protein 6.3 g/dL (6.6-8.7)
[2021-12-21 06:12] LABS: Creatine Phosphokinase 67 U/L (39-308); NT Pro B Type Natriuretic Pept 2300 pg/mL (0-125)
--- NOTE | 2021-12-21 07:37 | ECG_ITS ---
[facility] Test Date: 2021-12-21 Pat Name: Jared Zazueta Department: Room: 111 Gender: Male [employer] Recruiter: Yadira Antonia : 1980 Requested By: Tannre Steve Order Number: [id number] William MD: Bessie Pandya M.D. Interpretive Statements NAME OF STUDY: LEXISCAN SESTAMIBI STRESS TEST INDICATION: Chest Pain, PROCEDURE: At the baseline, the EKG revealed normal sinus rhythm with diffuse nonspecific T wave changes. Poor R wave progression. Possible left atrial enlargement. The baseline blood pressure was 94/71 mm Hg with a heart rate of 92 beats/min. Lexiscan was infused over a period of 20 seconds. A total of 0.4 milligrams of Lexiscan was infused. The stress phase was continued for a total of 5 minutes. Heart rate at the end of the stress phase was 94 with a blood pressure 113/71. The EKG at the peak infusion revealed no significant changes. Sestamibi was injected 20 seconds after the Lexiscan infusion. Blood pressure at the end of the recovery phase was 102/77 with a heart rate of 96 per minute. CONCLUSION: 1. No significant EKG changes with the LexiScan infusion 2. No LexiScan induced chest pain or cardiac arrhythmia 3. Normal blood pressure and heart rate response 4. Sestamibi/sestamibi perfusion scan pending; see separate report. Electronically Signed On 12-21-2021 9:56:30 CDT by Bessie Pandya M.D. [email or web address]
[2021-12-21] MEDS: regadenoson 0.4 Mg/5 ml Syringe IVP (08:01)
[2021-12-21] MEDS: NON-FORMULARY MEDICATION (Omeprazole 20 mg capsule,delayed release(DR/EC)) 20 EACH PO (09:00)
[2021-12-21] MEDS: losartan 50 mg Tablet 25 MG PO (09:43)
[2021-12-21] MEDS: aspirin 81 mg EC Tablet PO (09:43)
[2021-12-21] MEDS: metoprolol tartrate 25 mg Tablet 12.5 MG PO (09:43)
[2021-12-21] MEDS: tamsulosin 0.4 mg Capsule PO (09:44)
[2021-12-21] MEDS: spironolactone 25 mg Tablet PO (09:44)
[2021-12-21] MEDS: enoxaparin 40 mg/0.4 mL Syringe SUBCUT (09:44)
[2021-12-21] MEDS: magnesium lactate 84 mg Tablet PO ×2 (09:44→18:34)
--- NOTE | 2021-12-21 09:48 | P.PN_ITS ---
Subjective Subjective: Patient denies any chest pain or chest tightness. His shortness of breath is significantly improved. However he has significant dyspnea on exertion. He also feels tired most of the times. As he goes to sleep, his oxygen saturation at times drops into the 70s. Denies any fever, chills or cough Medications: Medication Review Details: Current Medications Albuterol Sulfate (Albuterol 8 Gm Mdi) 2 puff INHALATION QID.RESPIRATORY [facility] Last Admin: 12/21/21 07:45 Dose: Not Given Documented by: Albuterol/Ipratropium (Ipratropium-Albuterol 3 Ml Neb) 3 ml INHALATION Q6H PRN PRN Reason: SHORTNESS OF BREATH Aminophylline (Aminophylline 25 Mg/Ml Sdv 10 Ml) 25 mg IVP Q2M PRN PRN Reason: see dose instructions Stop: 12/22/21 07:37 Aspirin (Aspirin 81 Mg Ec Tablet) 81 mg PO DAILY [facility] Last Admin: 12/21/21 09:43 Dose: 81 mg Documented by: Atorvastatin Calcium (Atorvastatin 40 Mg Tablet) 40 mg PO BEDTIME [facility] Last Admin: 12/20/21 20:17 Dose: 40 mg Documented by: Dicyclomine HCl (Dicyclomine 20 Mg Tablet) 20 mg PO QID PRN PRN Reason: Stomach Cramps Enoxaparin Sodium (Enoxaparin 40 Mg/0.4 Ml Syringe) 40 mg SUBCUT Q24H [facility] Last Admin: 12/21/21 09:44 Dose: 40 mg Documented by: Escitalopram Oxalate (Escitalopram 10 Mg Tablet) 20 mg PO BEDTIME [facility] Last Admin: 12/20/21 20:18 Dose: 20 mg Documented by: Furosemide (Furosemide 10 Mg/Ml Sdv 10ml) 40 mg IVP Q24H [facility] Last Admin: 12/20/21 09:40 Dose: 40 mg Documented by: Doxycycline Hyclate 100 mg/ (Sodium Chloride) 100 mls @ 100 mls/hr IV Q12H [facility]; Protocol Last Infusion: 12/21/21 00:34 Dose: Infused Documented by: Losartan Potassium (Losartan 50 Mg Tablet) 25 mg PO DAILY [facility] Last Admin: 12/21/21 09:43 Dose: 25 mg Documented by: Magnesium Lactate (Magnesium Lactate 84 Mg Tablet) 84 mg PO BID [facility] Last Admin: 12/21/21 09:44 Dose: 84 mg Documented by: Metoprolol Tartrate (Metoprolol Tartrate 25 Mg Tablet) 12.5 mg PO BID [facility] Last Admin: 12/21/21 09:43 Dose: 12.5 mg Documented by: Nitroglycerin (Nitroglycerin 0.4 Mg Sublingual Tablet) 0.4 mg SUBLINGUAL Q5M PRN PRN Reason: CHEST PAIN Stop: 12/22/21 07:37 Non-Formulary Medication Escitalopram 10 Mg 1 each PO DAILY [facility] Non-Formulary Medication Buprenorphine 8 Mg 1 each SUBLINGUAL BID [facility] Non-Formulary Medication Trazodone 0.5 - 1 each PO BEDTIME PRN PRN Reason: SLEEP Non-Formulary Medication Dicyclomine 20 Mg 1 each PO Q6H [facility] Last Admin: 12/21/21 04:51 Dose: Not Given Documented by: Non-Formulary Medication Omeprazole 20mg 1 each PO DAILY [facility] Non-Formulary MedicationAdvair 100/50 1 each INHALATION BID [facility] Non-Formulary Medication Fluticasone 1 each INTRANASAL BID [facility] Non-Formulary Medication (Buprenorphine Hcl) 8 mg SUBLINGUAL BID [facility] Last Admin: 12/20/21 10:43 Dose: Not Given Documented by: Non-Formulary Medication (Omeprazole) 20 mg PO DAILY [facility] Last Admin: 12/20/21 10:44 Dose: Not Given Documented by: Non-Formulary Medication (Fluticasone Propion-Salmeterol [Advair Diskus]) 1 inh INHALATION BID [facility] Last Admin: 12/21/21 09:40 Dose: Not Given Documented by: Ondansetron HCl (Ondansetron 2 Mg/Ml Sdv 2 Ml) 4 mg IVP Q6H PRN PRN Reason: NAUSEA AND VOMITING Last Admin: 12/20/21 23:27 Dose: 4 mg Documented by: Ondansetron HCl (Ondansetron 2 Mg/Ml Sdv 2 Ml) 4 mg IVP Q2M PRN PRN Reason: NAUSEA Spironolactone (Spironolactone 25 Mg Tablet) 25 mg PO DAILY [facility] Last Admin: 12/21/21 09:44 Dose: 25 mg Documented by: Tamsulosin HCl (Tamsulosin 0.4 Mg Capsule) 0.4 mg PO BID [facility] Last Admin: 12/21/21 09:44 Dose: 0.4 mg Documented by: Trazodone HCl (Trazodone 50 Mg Tablet) 50 mg PO BEDTIME PRN PRN Reason: for sleep Vitals/I&O/Wt Last Vital Signs Temp 97.4 F L 12/21/21 09:17 Pulse 92 12/21/21 09:17 Resp 18 12/21/21 09:17 BP 98/68 12/21/21 09:43 Pulse Ox 95 12/21/21 09:17 12/20/21 12/21/21 12/21/21 22:59 06:59 14:59 Intake Total 100 / 200 Output Total 1000 / 1750 200 / 1950 Balance -1000 / -1650 -100 / -1750 Physical Exam Narrative: GENERAL: The patient is alert and oriented times three. Not in any acute distress. Slightly tachypneic and very anxious HEENT: No significant pallor, icterus or lymphadenopathy. The pupils are reactant to light. Oral cavity: There are no mucous membrane lesions. NECK: Trachea appears to be central. No masses noted. No JVD or thyromegaly appreciated. No carotid bruit. RESPIRATORY: Chest is symmetrical. No intercostals muscle retraction or any accessory muscle activation. There is no chest wall tenderness. Breath sounds are heard bilaterally. No rales or rhonchi heard. No evidence of any consolidation. BREASTS: Deferred. HEART: The PMI is in the 5th left intercostals space just inside the midclavicular line. No palpable precordial events. S1 and S2 are normal. No S3 or S4 heard. No pericardial rub or any click heard. Systolic murmur grade 3 or 6 in the left sternal border and also in the mitral area ABDOMEN: No vessel pulsations or distention. No tenderness. No organomegaly appreciated. No abdominal bruit. Bowel sounds are normally heard. : Deferred. RECTAL: Deferred. LYMPHATIC: Enlarged cervical and inguinal lymph nodes EXTREMITIES: No edema or cyanosis. MUSCULOSKELETAL: No acute joint deformities or swelling SKIN: There are no significant scars or skin rash noted. NEUROPSYCHIATRIC: The patient is alert and oriented x3. Appears to be in a good mood. The higher functions are grossly within normal limits. No tremors or rigidity noted. Data : 12/21/21 04:46 12/21/21 04:46 Other Labs: Laboratory Last Values WBC 7.0 10^3/uL (4.0-10.0) 12/21/21 04:46 RBC 6.12 10^6/uL (4.1-5.3) H 12/21/21 04:46 Hgb 18.1 g/dL (11.7-16.6) H 12/21/21 04:46 Hct 55.2 % (42.0-52.0) H 12/21/21 04:46 MCV 90.2 fl (80-94) 12/21/21 04:46 MCH 29.6 pg (28.0-34.0) 12/21/21 04:46 MCHC 32.8 g/dL (30.0-36.0) 12/21/21 04:46 RDW 13.2 % (12.1-15.1) 12/21/21 04:46 Plt Count 214 10^3/cmm (130-400) 12/21/21 04:46 MPV 10.4 fL (7.4-10.4) 12/21/21 04:46 Neut % (Auto) 62.6 % 12/21/21 04:46 Lymph % (Auto) 23.9 % 12/21/21 04:46 [place] % (Auto) 8.7 % 12/21/21 04:46 Eos % (Auto) 3.6 % 12/21/21 04:46 Baso % (Auto) 0.9 % 12/21/21 04:46 Neut # (Auto) 4.37 10^3/uL (1.8-7.7) 12/21/21 04:46 Lymph # (Auto) 1.7 10^3/uL (0.8-4.8) 12/21/21 04:46 [place] # (Auto) 0.6 10^3/uL (0.2-0.9) 12/21/21 04:46 Eos # (Auto) 0.3 10^3/uL (0.0-0.8) 12/21/21 04:46 Baso # (Auto) 0.1 10^3/uL (0.0-0.1) 12/21/21 04:46 Nucleated RBC % (auto) 0 % 12/21/21 04:46 Nucleated RBCs # 0.0 /100WBC 12/21/21 04:46 ESR 1 mm/hr (0-10) 12/19/21 04:44 PT 15.70 SECONDS (12.1-14.9) H 12/19/21 04:44 INR 1.21 (0.8-1.2) H 12/19/21 04:44 APTT 30.1 SECONDS (23.9-36.7) 12/19/21 04:44 Fibrinogen 249 mg/dL (174-498) 12/19/21 04:44 Fibrin Degrad Products Neg, <10 ug/mL (NEG) 12/19/21 05:43 D-Dimer 1.97 ug/mIFEU (0-0.59) H 12/19/21 04:44 Specimen Type Arterial 12/19/21 09:50 Sample Site Radial, right 12/19/21 09:50 ABG pH 7.47 (7.35-7.45) H 12/19/21 09:50 ABG pCO2 34.9 mmHg (35-45) L 12/19/21 09:50 ABG pO2 88.3 mmHg (80.0-100.0) 12/19/21 09:50 ABG HCO3 25.4 mmol/L (22-26) 12/19/21 09:50 ABG Base Excess 2.2 mmol/L (-2.0-2.0) H 12/19/21 09:50 Roberto Test Pos 12/19/21 09:50 Hematocrit 52.8 % (42-52) H 12/19/21 09:50 O2 Delivery Device Room air 12/19/21 09:50 Medical Practice Administrator ID Hinja 12/19/21 09:50 Sodium 139 mmol/L (136-145) 12/21/21 04:46 Potassium 4.8 mmol/L (3.5-5.1) 12/21/21 04:46 Chloride 101 mmol/L (98-107) 12/21/21 04:46 Carbon Dioxide 29 mmol/L (22-29) 12/21/21 04:46 Anion Gap 13.8 (5-19) 12/21/21 04:46 BUN 30 mg/dL (6-20) H 12/21/21 04:46 Creatinine 1.4 mg/dL (0.7-1.2) H 12/21/21 04:46 GFR Calculation 55.6 mL/min (90-130) L 12/21/21 04:46 Glucose 97 mg/dL (65-115) 12/21/21 04:46 POC Glucose 123 mg/dL (70-110) H 12/20/21 21:18 Calculated Osmolality 294 mOsm/kg (285-295) 12/21/21 04:46 Calcium 9.1 mg/dL (8.5-10.5) 12/21/21 04:46 Phosphorus 4.7 mg/dL (2.5-4.5) H 12/21/21 04:46 Magnesium 2.3 mg/dL (1.7-2.3) 12/21/21 04:46 Ferritin 227 ng/mL (30-400) 12/19/21 09:05 Total Bilirubin 1.4 mg/dL (0.15-1.2) H 12/21/21 04:46 Direct Bilirubin 0.40 mg/dL (0.00-0.30) H 12/19/21 04:44 GGT 52 U/L (8-61) 12/19/21 04:44 AST 54 U/L (0-40) H 12/21/21 04:46 ALT 70 U/L (0-41) H 12/21/21 04:46 Alkaline Phosphatase 91 IU/L (40-130) 12/21/21 04:46 Lactate Dehydrogenase 174 U/L (135-225) 12/19/21 04:44 Lactate Dehydrogenase Cancelled 12/19/21 04:44 Creatine Kinase 67 U/L (39-308) 12/21/21 04:46 Troponin T Baseline 14 ng/L (0-15) 12/18/21 23:11 Troponin T 120 Minute 14.51 ng/L (0-15) 12/19/21 01:40 Delta Troponin T Not Reportable 12/19/21 01:40 Troponin T Hi Sens 6Hr 14.34 ng/L (0-15) 12/19/21 04:44 Troponin T Hi Sens 6Hr Delta Not Reportable 12/19/21 04:44 C-Reactive Protein 4.5 mg/L (0.0-4.9) 12/19/21 04:44 C-Reactive Protein 4.6 mg/L (0.0-4.9) 12/19/21 04:44 NT-Pro-B Natriuret Pep 2300 pg/mL (0-125) H 12/21/21 04:46 Total Protein 6.3 g/dL (6.6-8.7) L 12/21/21 04:46 Albumin 3.5 g/dL (3.5-5.2) 12/21/21 04:46 Globulin 2.8 g/dL (1.3-4.6) 12/21/21 04:46 Lipase 20 U/L (13-60) 12/19/21 04:44 Procalcitonin 0.07 ng/mL (0-0.5) 12/19/21 04:44 TSH 1.05 uIU/mL (0.27-4.20) 12/18/21 23:28 Urine Color Yellow (Yellow) 12/19/21 13:16 Urine Appearance Clear (CLEAR) 12/19/21 13:16 Urine pH 5 (5-7) 12/19/21 13:16 Ur Specific [place] 1.010 (1.005-1.030) 12/19/21 13:16 Urine Protein Neg (Negative) 12/19/21 13:16 Urine Glucose (UA) Norm (Normal) 12/19/21 13:16 Urine Ketones Negative (Negative) 12/19/21 13:16 Urine Blood Neg (Negative) 12/19/21 13:16 Urine Nitrate Negative (Negative) 12/19/21 13:16 Urine Bilirubin Neg (Negative) 12/19/21 13:16 Urine Urobilinogen Norm mg/dL (Negative) 12/19/21 13:16 Ur Leukocyte Esterase Negative (Negative) 12/19/21 13:16 Nasal Influ A H1 2008 PCR Not detected (NOT DETECT) 12/19/21 13:16 Urine Opiates Screen Negative ng/mL (Negative) 12/19/21 02:28 Ur Barbiturates Screen Negative ng/mL (Negative) 12/19/21 02:28 Ur Phencyclidine Scrn Negative ng/mL (Negative) 12/19/21 02:28 Ur Amphetamines Screen Negative ng/mL (Negative) 12/19/21 02:28 U Benzodiazepines Scrn Negative ng/mL (Negative) 12/19/21 02:28 Urine Cocaine Screen Negative ng/mL (Negative) 12/19/21 02:28 U Marijuana (THC) Screen Negative ng/mL (Negative) 12/19/21 02:28 Ethyl Alcohol < 10 mg/dL (0-10) 12/19/21 04:44 RPR Nonreactive (Nonreactive) 12/19/21 09:05 Adenovirus (PCR) Not detected (NOT DETECT) 12/19/21 13:16 C. pneumoniae DNA (PCR) Not detected (NOT DETECT) 12/19/21 13:16 Coronavirus 229E (PCR) Not detected (NOT DETECT) 12/19/21 13:16 Hepatitis A IgM Ab Non-reactive (Nonreactive) 12/19/21 09:05 Hep Bs Antigen Non-reactive (Nonreactive) 12/19/21 09:05 Hep B Core IgM Ab Non-reactive (Nonreactive) 12/19/21 09:05 Hepatitis C Antibody Non-reactive (Nonreactive) 12/19/21 09:05 HIV 1&2 Ab & HIV 1 Ag Non-reactive (Non-Reactiv) 12/19/21 09:05 HIV 1&2 Antibody Non-reactive (Non-Reactiv) 12/19/21 09:05 Human Metapneumovir PCR Not detected (NOT DETECT) 12/19/21 13:16 Influenza A (H1) PCR Not detected (NOT DETECT) 12/19/21 13:16 Influenza A (H3) PCR Not detected (NOT DETECT) 12/19/21 13:16 Influenza Type A Ag Cancelled 12/19/21 13:16 Influenza Type A (PCR) Not detected (NOT DETECT) 12/19/21 13:16 Influenza Type B Ag Cancelled 12/19/21 13:16 Influenza Type B (PCR) Not detected (NOT DETECT) 12/19/21 13:16 M. pneumoniae (PCR) Not detected (NOT DETECT) 12/19/21 13:16 Parainfluenza 1 (PCR) Not detected (NOT DETECT) 12/19/21 13:16 Parainfluenza 2 (PCR) Not detected (NOT DETECT) 12/19/21 13:16 Parainfluenza 3 (PCR) Not detected (NOT DETECT) 12/19/21 13:16 Parainfluenza 4 (PCR) Not detected (NOT DETECT) 12/19/21 13:16 RSV Type A (PCR) Not detected (NOT DETECT) 12/19/21 13:16 RSV Type B (PCR) Not detected (NOT DETECT) 12/19/21 13:16 Entero/Rhino (PCR) Not detected (NOT DETECT) 12/19/21 13:16 SARS-CoV-2 (PCR) Not detected (NOT DETECT) 12/19/21 13:16 Micro: Microbiology 12/19/21 09:05 Blood Culture - Preliminary Blood NEGATIVE TO DATE 12/19/21 09:12 Blood Culture - Preliminary Blood NEGATIVE TO DATE A&P Assessment and plan (1) Acute on chronic systolic heart failure: Patient currently has class III to class IV heart failure symptoms. The LV ejection fraction is around 14%. Patient had a myocardial perfusion imaging today. He was found to have an area of reversible defect in the inferior wall suggesting ischemia in the distribution of the right coronary artery. For further evaluation of his coronary status, he requires a cardiac catheterization. 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 The etiology is not clear at this time. Infective etiology is a consideration. No obvious masses or vegetations are noted at this time. He may require a transesophageal echocardiogram, to better evaluate the valves, once the clinical condition is stabilized. Status: Acute (3) Cardiomyopathy: The etiology of the cardiomyopathy is no clear at this time. He seems to have a nonischemic component for the LV dysfunction/cardiomyopathy. Possibility of an intracardiac shunt causing LV dysfunction, cardiomyopathy, heart failure and hypoxia also is a consideration. Status: Acute (4) Abnormal EKG: As mentioned above. Status: Acute (5) Nonsustained ventricular tachycardia: Patient is on Mag-Tab SR 84 mg 1 tablet twice daily. May continue the beta- yovani. Has not had recurrence of arrhythmia since 12/19/2021. We will continue on the current medications. Status: Acute Plan In view of the complicated nature of the patient's condition, for further evaluation of structural heart disease, an MRI would be appropriate. In view of his borderline low blood pressure, medication options are limited. Since we do not have MRI available in our facility, it would be appropriate for him to be transferred to another facility for further management. This was discussed with the patient and the his family in detail, which he understood well and consented to proceed. I contacted Dr. Melvin at the [facility] will be making arrangements to have him transferred to that facility in the morning. We will continue to optimize medical treatment here in this hospital. Discussed the plan with the Dr. Gentile who concurred . Attestations Medical Necessity Statement*: Patient requires continued hospital stay for close monitoring and further management Coding Level of Care Code Acute Video Machines Mechanic for Chg Fwd History Expanded Problem Focused Exam Detailed Medical Decision Making High Complexity Diagnoses Acute on chronic systolic heart failure I50.23 Disorders of both mitral and tricuspid valves I08.1 Cardiomyopathy I42.9 Abnormal EKG R94.31 Nonsustained ventricular tachycardia I47.2
[2021-12-21] MEDS: FUROsemide 10 mg/mL SDV 10mL 40 MG IVP (09:50)
--- NOTE | 2021-12-21 10:00 | PC.NURSE ---
Pt is asking for his buprenorphine. noticed it was on hold. notified Dr Gentile and he is okay to go ahead and resume it. Pt has his own pill bottle in the pyxis, so med as ordered given this morning.
[2021-12-21 12:37] LABS: COMPLEMENT COMPONENT C3C 93 mg/dL (82-185); COMPLEMENT COMPONENT C4C 19 mg/dL (15-53)
--- NOTE | 2021-12-21 12:56 | NMCV_ITS ---
NM misty perf SPECT r/s* [id number] Jared Zazueta Age: 41 Gender: M : 1980 Exam Date: 12/21/2021 07:02 Ordering Phys: Bessie Pandya MD ([email or web address]) Technologist: EV Grande Exam Location: [facility] Indications: SHORTNESS OF BREATH STRESS TEST [facility] IMAGE PROTOCOL Rest/Stress 1 Lexiscan Day Radiopharmaceutical Dose (mCi) Administration Site Administered by Rest: Tc-99m 10.9 IV EV Sims Sestamibi Stress:Tc-99m 32.9 IV EV Sims Sestamibi Rest: 21-Dec-2021 60 Discovery 630 Stress: 21-Dec-2021 30 Discovery 630 0.4mg Lexiscan. Images obtained in supine and prone position. SPECT RESULTS Technical Quality: Excellent Raw Data Analysis: Normal Image Corrections: No attenuation or motion correction applied Summed Stress Score: 5 Summed Rest Score: 4 Summed Difference Score: 3 PERFUSION FINDINGS Small to moderate area of moderately decreased tracer uptake in the basal, mid and apical inferior wall region. Some reversibility was noted in the basal and mid inferior wall region. FUNCTIONAL RESULTS (calculated via Gated SPECT) Stress Image LV EF (%): 19 Stress EDV (mL):285 TID: 1.2 Stress ESV (mL):231 FUNCTIONAL FINDINGS: Segmental wall motion analysis revealing severe diffuse hypokinesia of the left ventricle IMPRESSIONS 1. Myocardial perfusion imaging revealing moderate area of decreased tracer uptake in the inferior wall region, with some reversibility suggesting ischemia in the distribution of the right coronary artery. Elevated transient ischemic dilatation ratio of 1.2 also may suggest endocardial ischemia 2. Markedly diminished LV ejection fraction 90%. 3. LV wall motion analysis revealing severe diffuse hypokinesia of the left ventricle. 4. Markedly dilated LV cavity with an end-systolic volume of 231 ml. No similar previous studies are available for comparison Dr Bessie Pandya MD FAC (Electronically Signed) Final Date: 21 Dec 2021 13:00 S
[2021-12-21] MEDS: doxycycline 100 MG in sodium chloride 0.9% (plus) 100 ML IV (13:42)
[2021-12-21 13:47] LABS: CENTROMERE B ANTIBODY <1.0 NEG AI (<1.0 NEG); JO-1 ANTIBODY <1.0 NEG AI (<1.0 NEG); RNP ANTIBODY <1.0 NEG AI (<1.0 NEG); SCL-70 ANTIBODY <1.0 NEG AI (<1.0 NEG); SJOGREN'S ANTIBODY (SS-A) <1.0 NEG AI (<1.0 NEG); SM ANTIBODY <1.0 NEG AI (<1.0 NEG); SS-B <1.0 NEG AI (<1.0 NEG)
[2021-12-21 14:23] LABS: THYROID PEROXIDASE ANTIBODIES <1 IU/mL (<9)
[2021-12-21 15:22] LABS: ANA SCREEN, IFA NEGATIVE (NEGATIVE)
--- NOTE | 2021-12-21 15:41 | PC.NURSE ---
10 voids through out the day at least.
[2021-12-21 16:07] LABS: Lyme AB Screen <0.90 index; Lymes IGG WB <0.90 index
[2021-12-21] MEDS: sodium chloride 0.9% 250 ML 150 ML IV (16:16)
[2021-12-21 16:27] LABS: COMPLEMENT, TOTAL (CH50) >60 U/mL (31-60)
--- NOTE | 2021-12-21 16:40 | PC.NURSE ---
Pt spo2 is down to 85 to 90% while he is sleeping. pt has cpap at bedside. discuss to pt if he wants to put his cpap mask back on, pt refused to wear it and pt has nasal cannula on 2 L as ordered by Dr. Gentile.
--- NOTE | 2021-12-21 16:42 | PC.NURSE ---
applied nasal cannula at [address] Gentile verbal order Dr Gentile at bedside. Pt has spo2 drops down to 85%-90% occasionally off and on when asleep. Dr order to apply 2 L of oxygen per NC.
[2021-12-21] MEDS: sodium chloride 0.9% (100 ml) 100 ML 200 ML IV (18:50)
--- NOTE | 2021-12-21 19:30 | PC.NURSE ---
call received from [facility] asking for a direct phone # in [facility] Talked to Jacki Mcmillan at [facility] that they will give us a room # availability tomorrow morning. Pt and at bedside are notified on this. They verbalizes understanding.
--- NOTE | 2021-12-21 20:03 | PC.NURSE ---
Shift Note Frequent safety and comfort rounds continue. Orders and/or nursing care completed as indicated. Patient monitored for response to intervention and treatment(s). Education provided includes chf dse process and meds for it, mitral valve regurg,transfer to [facility] for further MRI of his heart work-up. 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 Will continue to monitor.
--- NOTE | 2021-12-21 20:37 | P.PN_ITS ---
Subjective Subjective: His oxygen saturation has been fluctuating today. Decreasing with exertion, but sometimes even at rest noted to be going down to 80s, sometimes 70s, although waveform and not always consistent. He has been having dyspnea. Denies chest pain or pressure. Has been awake and alert this morning, requesting to resume Suboxone. This relationally resume, but subsequently found to be more somnolent. Held. Vitals/I&O/Wt Last Vital Signs Temp 97.3 F L 12/21/21 15:34 Pulse 76 12/21/21 15:54 Resp 17 12/21/21 15:54 BP 94/67 12/21/21 19:00 Pulse Ox 98 12/21/21 15:54 12/21/21 12/21/21 12/21/21 06:59 14:59 22:59 Intake Total 100 / 200 450 / 450 Output Total 200 / 1950 Balance -100 / -1750 450 / 450 Physical Exam Narrative: Father and life partner at bedside Const: COMMON NORMALS: alert GENERAL APPEARANCE: cooperative ORIENTATION/CONSCIOUSNESS: Yes awake HENMT: COMMON NORMALS: normocephalic, EAC's normal, Normal external nose present and moist oral mucous membranes HEAD & SCALP: normocephalic NOSE: Normal external nose present EXTERNAL AUDITORY CANAL: EAC's normal Neck/C-Spine: COMMON NORMALS: no meningeal signs Chest: CHEST: Yes Symmetrical chest wall rise Resp: COMMON NORMALS: clear to auscultation bilaterally AUSCULTATION: clear to auscultation bilaterally Cardio: COMMON NORMALS: regular rate, regular rhythm and No murmurs present (Cardio) RATE: regular rate RHYTHM: regular rhythm GI: COMMON NORMALS: Normal to inspection, nondistended, normoactive bowel sounds present, Soft to palpation and non-tender PALPATION: Yes Soft to palpation Extremity: COMMON NORMALS: no pedal edema Neuro: COMMON NORMALS: moves all extremities SENSORIUM/ORIENTATION: Yes alert MENINGEAL SIGNS: Yes no meningeal signs Psych: COMMON NORMALS: mental status grossly normal Skin: COMMON NORMALS: no wounds RASHES: no rashes Data : 12/21/21 04:46 12/21/21 04:46 A&P Assessment and plan (1) Hypoxemia: He preferred to start nasal cannula today instead of CPAP. Continue CPAP on standby for now. In case he gets more short of breath, hypoxic, would benefit from resuming. Noted to also have some decrease in saturation while sleeping. May benefit from sleep study as well for sleep apnea discussed with him and his family. Hypoxia likely secondary to acute continue systolic congestive heart failure, as well as valvular heart disease. Status: Acute (2) New onset of congestive heart failure: Continues with diuretic. Today with soft blood pressure as low as 62 MAP. For now losartan, metoprolol, spironolactone held. Underwent assessment by stress testing today. Stress test abnormal suggestive o f RCA distribution ischemia. Had also additional discussion with cardiology today with regards to recommendations for additional assessment at larger facility including cardiac MRI. Duration of coronary angiography with contrast allergy protocol. Status: Acute (3) RHF (right heart failure): Status: Acute Plan B symptoms Weight loss 190 pounds to 169 pounds in last 3 to 5 weeks Weight loss, lymphadenopathy Night sweats CT scan of his neck, chest, abdomen and pelvis without contrast had no acute findings Hemoglobin 16.9, likely secondary dehydration, smoking, continue to monitor High D-dimer: VQ scan low probability pulmonary emboli, venous ultrasound negative for DVT Decrease DVT prophylaxis Sinus tachycardia: improved BPH: Patient has been started on tamsulosin Cardiac diet DVT prophylaxis currently on therapeutic dose of Lovenox Full code Attestations Medical Necessity Statement*: Continue admission for cyst management of new CHF, cardiomyopathy, with abnormal stress test as well, hypoxia. Coding Level of Care Code Acute Fitness Trainer for Abhi Galindo Diagnoses Hypoxemia R09.02 New onset of congestive heart failure I50.9 RHF (right heart failure) I50.810
[2021-12-21] MEDS: escitalopram 10 mg Tablet 20 MG PO (20:58)
[2021-12-21] MEDS: atorvastatin 40 mg Tablet PO (20:58)
[2021-12-22] MEDS: doxycycline 100 MG in sodium chloride 0.9% (plus) 100 ML IV (00:43)
[2021-12-22 03:42] VITALS: BP 89/53; PULSE 79; RESP 10; TEMP 37; O2SAT 97
[2021-12-22 04:04] VITALS: PULSE 74; O2SAT 98
[2021-12-22 04:26] VITALS: BP 110/72
[2021-12-22 04:27] VITALS: PULSE 80
[2021-12-22 05:18] LABS: Basophils # 0.1 10^3/uL (0.0-0.1); Basophils % 0.8 %; Eosinophils # 0.3 10^3/uL (0.0-0.8); Eosinophils % 5.1 %; Hematocrit 46.7 % (42.0-52.0); Hemoglobin 15.3 g/dL (11.7-16.6); Lymphocytes # 2.1 10^3/uL (0.8-4.8); Lymphocytes % 33.1 %; Mean Corpuscular HGB Conc 32.8 g/dL (30.0-36.0); Mean Corpuscular Hemoglobin 29.5 pg (28.0-34.0); Mean Platelet Volume 10.3 fL (7.4-10.4); Monocytes # 0.5 10^3/uL (0.2-0.9); Monocytes % 7.3 %; Neutrophils # 3.38 10^3/uL (1.8-7.7); Neutrophils % 53.4 %; Nucleated Red Blood Cells % 0 %; Platelet Count 183 10^3/cmm (130-400); Red Blood Count 5.19 10^6/uL (4.1-5.3); Red Cell Distribution Width 12.9 % (12.1-15.1); White Blood Count 6.3 10^3/uL (4.0-10.0)
[2021-12-22 05:42] LABS: Alanine Aminotransferase 54 U/L (0-41); Alkaline Phosphatase 73 IU/L (40-130); Anion Gap 9.9 (5-19); Aspartate Amino Transferase 33 U/L (0-40); Blood Urea Nitrogen 32 mg/dL (6-20); Calcium 8.5 mg/dL (8.5-10.5); Carbon Dioxide 31 mmol/L (22-29); Chloride 101 mmol/L (98-107); Globulin 2.1 g/dL (1.3-4.6); Glomerular Filtration Rate 51.3 mL/min (90-130); Glucose 134 mg/dL (65-115); Osmolality Calculated 295 mOsm/kg (285-295); Potassium 3.9 mmol/L (3.5-5.1); Sodium 138 mmol/L (136-145); Total Bilirubin 0.8 mg/dL (0.15-1.2); Total Protein 5.1 g/dL (6.6-8.7)
[2021-12-22 05:47] LABS: Creatine Phosphokinase 35 U/L (39-308); NT Pro B Type Natriuretic Pept 1102 pg/mL (0-125)
--- NOTE | 2021-12-22 07:52 | P.PN_ITS ---
Subjective Subjective: The patient is feeling better today. His blood pressure has been fluctuating but fairly stable at this time. Still has significant shortness of breath with activities. Telemetry shows sinus rhythm with a heart rate of 82/min. Remains afebrile. Medications: Medication Review Details: Current Medications Albuterol Sulfate (Albuterol 8 Gm Mdi) 2 puff INHALATION Q4H.RESPIRATORY PRN PRN Reason: sob Albuterol/Ipratropium (Ipratropium-Albuterol 3 Ml Neb) 3 ml INHALATION Q6H PRN PRN Reason: SHORTNESS OF BREATH Aspirin (Aspirin 81 Mg Ec Tablet) 81 mg PO DAILY [facility] Last Admin: 12/21/21 09:43 Dose: 81 mg Documented by: Atorvastatin Calcium (Atorvastatin 40 Mg Tablet) 40 mg PO BEDTIME [facility] Last Admin: 12/21/21 20:58 Dose: 40 mg Documented by: Dicyclomine HCl (Dicyclomine 20 Mg Tablet) 20 mg PO QID PRN PRN Reason: Stomach Cramps Enoxaparin Sodium (Enoxaparin 40 Mg/0.4 Ml Syringe) 40 mg SUBCUT Q24H [facility] Last Admin: 12/21/21 09:44 Dose: 40 mg Documented by: Escitalopram Oxalate (Escitalopram 10 Mg Tablet) 20 mg PO BEDTIME [facility] Last Admin: 12/21/21 20:58 Dose: 20 mg Documented by: Furosemide (Furosemide 10 Mg/Ml Sdv 10ml) 40 mg IVP Q24H [facility] Last Admin: 12/21/21 09:50 Dose: 40 mg Documented by: Doxycycline Hyclate 100 mg/ (Sodium Chloride) 100 mls @ 100 mls/hr IV Q12H [facility]; Protocol Last Infusion: 12/22/21 01:48 Dose: Infused Documented by: Losartan Potassium (Losartan 50 Mg Tablet) 25 mg PO DAILY [facility] Last Admin: 12/21/21 09:43 Dose: 25 mg Documented by: Magnesium Lactate (Magnesium Lactate 84 Mg Tablet) 84 mg PO BID [facility] Last Admin: 12/21/21 18:34 Dose: 84 mg Documented by: Metoprolol Tartrate (Metoprolol Tartrate 25 Mg Tablet) 12.5 mg PO BID [facility] Last Admin: 12/21/21 17:53 Dose: Not Given Documented by: Non-Formulary Medication Escitalopram 10 Mg 1 each PO DAILY [facility] Non-Formulary Medication Buprenorphine 8 Mg 1 each SUBLINGUAL BID [facility] Last Admin: 12/21/21 17:54 Dose: Not Given Documented by: Non-Formulary Medication Trazodone 0.5 - 1 each PO BEDTIME PRN PRN Reason: SLEEP Non-Formulary Medication Dicyclomine 20 Mg 1 each PO Q6H [facility] Last Admin: 12/22/21 04:45 Dose: Not Given Documented by: Non-Formulary Medication Omeprazole 20mg 1 each PO DAILY [facility] Non-Formulary MedicationAdvair 100/50 1 each INHALATION BID [facility] Last Admin: 12/21/21 17:53 Dose: Not Given Documented by: Non-Formulary Medication Fluticasone 1 each INTRANASAL BID [facility] Last Admin: 12/21/21 17:58 Dose: Not Given Documented by: Non-Formulary Medication (Buprenorphine Hcl) 8 mg SUBLINGUAL BID [facility] Last Admin: 12/20/21 10:43 Dose: Not Given Documented by: Non-Formulary Medication (Omeprazole) 20 mg PO DAILY [facility] Last Admin: 12/21/21 09:00 Dose: 20 mg Documented by: Non-Formulary Medication (Fluticasone Propion-Salmeterol [Advair Diskus]) 1 inh INHALATION BID [facility] Last Admin: 12/21/21 17:53 Dose: Not Given Documented by: Ondansetron HCl (Ondansetron 2 Mg/Ml Sdv 2 Ml) 4 mg IVP Q6H PRN PRN Reason: NAUSEA AND VOMITING Last Admin: 12/20/21 23:27 Dose: 4 mg Documented by: Ondansetron HCl (Ondansetron 2 Mg/Ml Sdv 2 Ml) 4 mg IVP Q2M PRN PRN Reason: NAUSEA Spironolactone (Spironolactone 25 Mg Tablet) 25 mg PO DAILY [facility] Last Admin: 12/21/21 09:44 Dose: 25 mg Documented by: Tamsulosin HCl (Tamsulosin 0.4 Mg Capsule) 0.4 mg PO BID [facility] Last Admin: 12/21/21 17:58 Dose: Not Given Documented by: Trazodone HCl (Trazodone 50 Mg Tablet) 50 mg PO BEDTIME PRN PRN Reason: for sleep Vitals/I&O/Wt Last Vital Signs Temp 98.6 F 12/22/21 03:42 Pulse 80 12/22/21 04:27 Resp 10 L 12/22/21 03:42 BP 110/72 12/22/21 04:26 Pulse Ox 98 12/22/21 04:04 12/21/21 12/22/21 12/22/21 22:59 06:59 14:59 Intake Total 850 / 850 100 / 950 Output Total 350 / 350 Balance 850 / 850 -250 / 600 Physical Exam Narrative: GENERAL: The patient is alert and oriented times three. Not in any acute distress. Slightly tachypneic and very anxious HEENT: No significant pallor, icterus or lymphadenopathy. The pupils are reactant to light. Oral cavity: There are no mucous membrane lesions. NECK: Trachea appears to be central. No masses noted. No JVD or thyromegaly appreciated. No carotid bruit. RESPIRATORY: Chest is symmetrical. No intercostals muscle retraction or any accessory muscle activation. There is no chest wall tenderness. Breath sounds are heard bilaterally. No rales or rhonchi heard. No evidence of any consolidation. BREASTS: Deferred. HEART: No palpable precordial events. S1 and S2 are normal. Soft S3. Systolic murmur grade 3 or 6 in the left sternal border and also in the mitral area ABDOMEN: No vessel pulsations or distention. No tenderness. No organomegaly appreciated. No abdominal bruit. Bowel sounds are normally heard. : Deferred. RECTAL: Deferred. LYMPHATIC: Enlarged cervical and inguinal lymph nodes EXTREMITIES: No edema or cyanosis. MUSCULOSKELETAL: No acute joint deformities or swelling SKIN: There are no significant scars or skin rash noted. NEUROPSYCHIATRIC: The patient is alert and oriented x3. Appears to be in a good mood. The higher functions are grossly within normal limits. No tremors or rigidity noted. Data : 12/22/21 04:40 12/22/21 04:40 Other Labs: Laboratory Last Values WBC 6.3 10^3/uL (4.0-10.0) 12/22/21 04:40 RBC 5.19 10^6/uL (4.1-5.3) 12/22/21 04:40 Hgb 15.3 g/dL (11.7-16.6) 12/22/21 04:40 Hct 46.7 % (42.0-52.0) 12/22/21 04:40 MCV 90.0 fl (80-94) 12/22/21 04:40 MCH 29.5 pg (28.0-34.0) 12/22/21 04:40 MCHC 32.8 g/dL (30.0-36.0) 12/22/21 04:40 RDW 12.9 % (12.1-15.1) 12/22/21 04:40 Plt Count 183 10^3/cmm (130-400) 12/22/21 04:40 MPV 10.3 fL (7.4-10.4) 12/22/21 04:40 Neut % (Auto) 53.4 % 12/22/21 04:40 Lymph % (Auto) 33.1 % 12/22/21 04:40 Archuleta % (Auto) 7.3 % 12/22/21 04:40 Eos % (Auto) 5.1 % 12/22/21 04:40 Baso % (Auto) 0.8 % 12/22/21 04:40 Neut # (Auto) 3.38 10^3/uL (1.8-7.7) 12/22/21 04:40 Lymph # (Auto) 2.1 10^3/uL (0.8-4.8) 12/22/21 04:40 Archuleta # (Auto) 0.5 10^3/uL (0.2-0.9) 12/22/21 04:40 Eos # (Auto) 0.3 10^3/uL (0.0-0.8) 12/22/21 04:40 Baso # (Auto) 0.1 10^3/uL (0.0-0.1) 12/22/21 04:40 Nucleated RBC % (auto) 0 % 12/22/21 04:40 Nucleated RBCs # 0.0 /100WBC 12/22/21 04:40 ESR 1 mm/hr (0-10) 12/19/21 04:44 PT 15.70 SECONDS (12.1-14.9) H 12/19/21 04:44 INR 1.21 (0.8-1.2) H 12/19/21 04:44 APTT 30.1 SECONDS (23.9-36.7) 12/19/21 04:44 Fibrinogen 249 mg/dL (174-498) 12/19/21 04:44 Fibrin Degrad Products Neg, <10 ug/mL (NEG) 12/19/21 05:43 D-Dimer 1.97 ug/mIFEU (0-0.59) H 12/19/21 04:44 Specimen Type Arterial 12/19/21 09:50 Sample Site Radial, right 12/19/21 09:50 ABG pH 7.47 (7.35-7.45) H 12/19/21 09:50 ABG pCO2 34.9 mmHg (35-45) L 12/19/21 09:50 ABG pO2 88.3 mmHg (80.0-100.0) 12/19/21 09:50 ABG HCO3 25.4 mmol/L (22-26) 12/19/21 09:50 ABG Base Excess 2.2 mmol/L (-2.0-2.0) H 12/19/21 09:50 Roberto Test Pos 12/19/21 09:50 Hematocrit 52.8 % (42-52) H 12/19/21 09:50 O2 Delivery Device Room air 12/19/21 09:50 Timber Girdler ID Hinja 12/19/21 09:50 Sodium 138 mmol/L (136-145) 12/22/21 04:40 Potassium 3.9 mmol/L (3.5-5.1) 12/22/21 04:40 Chloride 101 mmol/L (98-107) 12/22/21 04:40 Carbon Dioxide 31 mmol/L (22-29) H 12/22/21 04:40 Anion Gap 9.9 (5-19) 12/22/21 04:40 BUN 32 mg/dL (6-20) H 12/22/21 04:40 Creatinine 1.5 mg/dL (0.7-1.2) H 12/22/21 04:40 GFR Calculation 51.3 mL/min (90-130) L 12/22/21 04:40 Glucose 134 mg/dL (65-115) H 12/22/21 04:40 POC Glucose 123 mg/dL (70-110) H 12/20/21 21:18 Calculated Osmolality 295 mOsm/kg (285-295) 12/22/21 04:40 Calcium 8.5 mg/dL (8.5-10.5) 12/22/21 04:40 Phosphorus 4.0 mg/dL (2.5-4.5) 12/22/21 04:40 Magnesium 2.0 mg/dL (1.7-2.3) 12/22/21 04:40 Ferritin 227 ng/mL (30-400) 12/19/21 09:05 Total Bilirubin 0.8 mg/dL (0.15-1.2) 12/22/21 04:40 Direct Bilirubin 0.40 mg/dL (0.00-0.30) H 12/19/21 04:44 GGT 52 U/L (8-61) 12/19/21 04:44 AST 33 U/L (0-40) 12/22/21 04:40 ALT 54 U/L (0-41) H 12/22/21 04:40 Alkaline Phosphatase 73 IU/L (40-130) 12/22/21 04:40 Lactate Dehydrogenase 174 U/L (135-225) 12/19/21 04:44 Lactate Dehydrogenase Cancelled 12/19/21 04:44 Creatine Kinase 35 U/L (39-308) L 12/22/21 04:40 Troponin T Baseline 14 ng/L (0-15) 12/18/21 23:11 Troponin T 120 Minute 14.51 ng/L (0-15) 12/19/21 01:40 Delta Troponin T Not Reportable 12/19/21 01:40 Troponin T Hi Sens 6Hr 14.34 ng/L (0-15) 12/19/21 04:44 Troponin T Hi Sens 6Hr Delta Not Reportable 12/19/21 04:44 C-Reactive Protein 4.5 mg/L (0.0-4.9) 12/19/21 04:44 C-Reactive Protein 4.6 mg/L (0.0-4.9) 12/19/21 04:44 NT-Pro-B Natriuret Pep 1102 pg/mL (0-125) H 12/22/21 04:40 Total Protein 5.1 g/dL (6.6-8.7) L 12/22/21 04:40 Albumin 3.0 g/dL (3.5-5.2) L 12/22/21 04:40 Globulin 2.1 g/dL (1.3-4.6) 12/22/21 04:40 Lipase 20 U/L (13-60) 12/19/21 04:44 Procalcitonin 0.07 ng/mL (0-0.5) 12/19/21 04:44 TSH 1.05 uIU/mL (0.27-4.20) 12/18/21 23:28 Urine Color Yellow (Yellow) 12/19/21 13:16 Urine Appearance Clear (CLEAR) 12/19/21 13:16 Urine pH 5 (5-7) 12/19/21 13:16 Ur Specific Tyler 1.010 (1.005-1.030) 12/19/21 13:16 Urine Protein Neg (Negative) 12/19/21 13:16 Urine Glucose (UA) Norm (Normal) 12/19/21 13:16 Urine Ketones Negative (Negative) 12/19/21 13:16 Urine Blood Neg (Negative) 12/19/21 13:16 Urine Nitrate Negative (Negative) 12/19/21 13:16 Urine Bilirubin Neg (Negative) 12/19/21 13:16 Urine Urobilinogen Norm mg/dL (Negative) 12/19/21 13:16 Ur Leukocyte Esterase Negative (Negative) 12/19/21 13:16 Nasal Influ A H1 2008 PCR Not detected (NOT DETECT) 12/19/21 13:16 Urine Opiates Screen Negative ng/mL (Negative) 12/19/21 02:28 Ur Barbiturates Screen Negative ng/mL (Negative) 12/19/21 02:28 Ur Phencyclidine Scrn Negative ng/mL (Negative) 12/19/21 02:28 Ur Amphetamines Screen Negative ng/mL (Negative) 12/19/21 02:28 U Benzodiazepines Scrn Negative ng/mL (Negative) 12/19/21 02:28 Urine Cocaine Screen Negative ng/mL (Negative) 12/19/21 02:28 U Marijuana (THC) Screen Negative ng/mL (Negative) 12/19/21 02:28 Ethyl Alcohol < 10 mg/dL (0-10) 12/19/21 04:44 MICHAEL IFA Animal Tis Res Negative (NEGATIVE) 12/19/21 09:05 SAMULE-1 Antibody <1.0 neg AI (<1.0 NEG) 12/19/21 09:05 SS-A Antibody <1.0 neg AI (<1.0 NEG) 12/19/21 09:05 SS-B Antibody <1.0 neg AI (<1.0 NEG) 12/19/21 09:05 Sm (Connors) Antibody <1.0 neg AI (<1.0 NEG) 12/19/21 09:05 SENIOR MARKETING DATA ANALYST Antibody <1.0 neg AI (<1.0 NEG) 12/19/21 09:05 Scl-70 Antibody <1.0 neg AI (<1.0 NEG) 12/19/21 09:05 Centromere B Antibody <1.0 neg AI (<1.0 NEG) 12/19/21 09:05 Thyroid Peroxidase Ab <1 IU/mL (<9) 12/19/21 09:05 Complement C3c 93 mg/dL (82-185) 12/19/21 09:05 Complement C4c 19 mg/dL (15-53) 12/19/21 09:05 CH50 Classical Pathway >60 U/mL (31-60) H 12/19/21 09:05 RPR Nonreactive (Nonreactive) 12/19/21 09:05 Adenovirus (PCR) Not detected (NOT DETECT) 12/19/21 13:16 Lyme Ab (Western Blot) <0.90 index 12/19/21 09:05 Lyme IgG (Western Blot 2) <0.90 index 12/19/21 09:05 C. pneumoniae DNA (PCR) Not detected (NOT DETECT) 12/19/21 13:16 Coronavirus 229E (PCR) Not detected (NOT DETECT) 12/19/21 13:16 Hepatitis A IgM Ab Non-reactive (Nonreactive) 12/19/21 09:05 Hep Bs Antigen Non-reactive (Nonreactive) 12/19/21 09:05 Hep B Core IgM Ab Non-reactive (Nonreactive) 12/19/21 09:05 Hepatitis C Antibody Non-reactive (Nonreactive) 12/19/21 09:05 HIV 1&2 Ab & HIV 1 Ag Non-reactive (Non-Reactiv) 12/19/21 09:05 HIV 1&2 Antibody Non-reactive (Non-Reactiv) 12/19/21 09:05 Human Metapneumovir PCR Not detected (NOT DETECT) 12/19/21 13:16 Influenza A (H1) PCR Not detected (NOT DETECT) 12/19/21 13:16 Influenza A (H3) PCR Not detected (NOT DETECT) 12/19/21 13:16 Influenza Type A Ag Cancelled 12/19/21 13:16 Influenza Type A (PCR) Not detected (NOT DETECT) 12/19/21 13:16 Influenza Type B Ag Cancelled 12/19/21 13:16 Influenza Type B (PCR) Not detected (NOT DETECT) 12/19/21 13:16 M. pneumoniae (PCR) Not detected (NOT DETECT) 12/19/21 13:16 Parainfluenza 1 (PCR) Not detected (NOT DETECT) 12/19/21 13:16 Parainfluenza 2 (PCR) Not detected (NOT DETECT) 12/19/21 13:16 Parainfluenza 3 (PCR) Not detected (NOT DETECT) 12/19/21 13:16 Parainfluenza 4 (PCR) Not detected (NOT DETECT) 12/19/21 13:16 RSV Type A (PCR) Not detected (NOT DETECT) 12/19/21 13:16 RSV Type B (PCR) Not detected (NOT DETECT) 12/19/21 13:16 Entero/Rhino (PCR) Not detected (NOT DETECT) 12/19/21 13:16 SARS-CoV-2 (PCR) Not detected (NOT DETECT) 12/19/21 13:16 A&P Assessment and plan (1) Acute on chronic systolic heart failure: Patient currently has class III to class IV heart failure symptoms. The LV ejection fraction is around 14%. Patient had a myocardial perfusion imaging yesterday. He was found to have an area of reversible defect in the inferior wall suggesting ischemia in the distribution of the right coronary artery. For further evaluation of his coronary status, he requires a cardiac catheterization. 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 This is a concern. In view of his multiple valvular heart disease, severe LV dysfunction he needs to be evaluated for structural heart disease and also possible her cardiac shunt. A cardiac MRI would be appropriate at this time. This was discussed with the patient and family in detail. Considered to have the facility to do cardiac MRI I contacted Dr. Melvin at the [facility]. Dr. Melvin accepted transfer for further management. He is a patient continues to have shortness of breath with activities he also may require left ventricular assist device. 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 The etiology is not clear at this time. Infective etiology is a consideration. No obvious masses or vegetations are noted at this time. He may require a transesophageal echocardiogram, to better evaluate the valves, once the clinical condition is stabilized. Status: Acute (3) Cardiomyopathy: The etiology of the cardiomyopathy is no clear at this time. He seems to have a nonischemic component for the LV dysfunction/cardiomyopathy. Possibility of an intracardiac shunt causing LV dysfunction, cardiomyopathy, heart failure and hypoxia also is a consideration. Status: Acute (4) Abnormal EKG: As mentioned above. Status: Acute (5) Nonsustained ventricular tachycardia: Patient is on Mag-Tab SR 84 mg 1 tablet twice daily. May continue the beta-yovani. Has not had recurrence of arrhythmia since 12/19/2021. We will continue on the current medications. Status: Acute Plan Patient is awaiting transfer to the [facility] today. For the time being, he may continue on the current medications. Attestations Medical Necessity Statement*: Possible transfer to the [facility] today. Coding Level of Care Code Acute Electricity Trader for Chg Fwd History Expanded Problem Focused Exam Detailed Medical Decision Making Moderate Complexity Diagnoses Acute on chronic systolic heart failure I50.23 Disorders of both mitral and tricuspid valves I08.1 Cardiomyopathy I42.9 Abnormal EKG R94.31 Nonsustained ventricular tachycardia I47.2
[2021-12-22 07:57] VITALS: PULSE 89; RESP 17; O2SAT 97
[2021-12-22 08:00] VITALS: BP 100/76; PULSE 94; RESP 19; TEMP 36.4; O2SAT 97
[2021-12-22] MEDS: aspirin 81 mg EC Tablet PO (08:42)
[2021-12-22] MEDS: FUROsemide 10 mg/mL SDV 10mL 40 MG IVP (08:42)
[2021-12-22] MEDS: magnesium lactate 84 mg Tablet PO (08:42)
[2021-12-22] MEDS: enoxaparin 40 mg/0.4 mL Syringe SUBCUT (08:42)
[2021-12-22] MEDS: NON-FORMULARY MEDICATION (Omeprazole 20 mg capsule,delayed release(DR/EC)) 20 EACH PO (08:45)
[2021-12-22] MEDS: buprenorphine-naloxone 4-1 mg Film 1 EACH SUBLINGUAL (11:20)
--- NOTE | 2021-12-22 11:43 | PC.NURSE ---
Addendum entered by Willow Law RN 12/22/21 11:55: home medications sent with pt. Original Note: report phoned to [facility],[place], [place]and report given to em[facility] staff.pt left via ground ambulance at [id number]
--- NOTE | 2021-12-22 17:30 | P.TS_ITS ---
Transfer Summary Providers Date of Admission: 12/19/21 01:12 Date of Discharge/Transfer: 12/22/21 Attending Provider at Admission: Arlene Travis MD Attending Provider at Transfer: Kieran Gentile Transfer Plans: Anticipated date of transfer: 12/22/21 . 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 Patient is stating that his symptoms roughly started 3 weeks ago, and he was in his usual state of health until 3 weeks ago when he started experiencing shortness of breath, he started noticing orthopnea and PND so stated with chest discomfort.? His chest pain would occur randomly sometimes at rest and sometimes on exertion, it would last only for a few seconds, it would not radiate, not associated with diaphoresis.? Patient is endorsing night sweats, significant weight loss, sore throat, lymphadenopathy of his groin whenever he eats jelly/gummy bears.? He has not noticed fevers in the morning, he is endorsing extremely fatigued and lethargic for last few days he has been experiencing emesis intermittently, initially his vomitus was bilious in nature now it is dark brown.? Emesis is not associate with food intake. He has quit smoking and marijuana use 5 months ago.? Has not had alcohol in last 8 years. His line of work includes exposure to a lot of excreta because he works with [employer] lines, he does have cows, horses and dogs. He is denying family history of hypercoagulable state, sudden cardiac arrest, cancer. He is denying history of fever, CHF, stroke Of note, he has been experiencing urinary tract obstructive symptoms for which he is following up with a urologist, a cystoscopy was done which did not show any pathological changes as per the patient, he has been diagnosed with BPH, He was seen in the emergency department at [facility] on Tuesday he was told about his enlarged heart, he was not admitted, he was discharged from the ER. Diagnostics in the ER revealed relative hypoxia, sinus tachycardia, patient is euvolemic however high BNP and high D-dimer Lymphadenopathy noted of anterior cervical neck area along right inguinal area, nontender, he is afebrile Heart rate 110 Clinically looks euvolemic to dehydrated I had discussion at length with the patient and his that at this point spectrum of differential diagnosis is wide He does have symptoms of right-sided heart failure Chest x-ray is clear Considering high D-dimer and B-cell symptoms such as weight loss, nocturnal sweats, lymphadenopathy I will get CT scan of the neck, chest, abdomen pelvis without contrast unfortunately he cannot get contrast he developed anaphylactic reaction to contrast Patient is stating that he had a VQ scan done on Tuesday at [facility] which was unremarkable He also has abnormal liver enzymes, his line of work will put him at risk of zoonotic diseases as well, Hospital Course Hospital Course 41-year-old gentleman with history of smoking, BPH, history of mild alcohol use disorder, anxiety, smoking addiction, on Suboxone, was admitted for assessment management of present weakness, fatigue, shortness of breath, was found to have new cardiomyopathy with HFrEF. With initial cardiac work-up not indicative of acute OH. Treated with IV Lasix. Echocardiogram: Severe diffuse hypokinesia of the left ventricle with an ejection fraction of 14%. Mildly dilated LV cavity. Type III diastolic dysfunction. Mild biatrial enlargement. Possibly severe tricuspid regurgitation. Moderately severe mitral valve regurgitation. Minimally thickened aortic, mitral and tricuspid leaflets No obvious masses or vegetations noted. Mild pulmonary valve regurgitation. Trivial pericardial effusion. No similar previous studies are available for comparison Was assessed by cardiology, with history of severe allergy to iodinated contrast underwent additional assessment with stress testing. Lexiscan with nuclear perfusion imagin. Myocardial perfusion imaging revealing moderate area of decreased tracer uptake in the inferior wall region, with some reversibility suggesting ischemia in the distribution of the right coronary artery. Elevated transient ischemic dilatation ratio of 1.2 also may suggest endocardial ischemia 2. Markedly diminished LV ejection fraction 90%. 3. LV wall motion analysis revealing severe diffuse hypokinesia of the left ventricle. 4. Markedly dilated LV cavity with an end-systolic volume of 231 ml. No similar previous studies are available for comparison Additional studies included infectious and rheumatologic work-up, with negative viral panel by PCR, negative hepatitis, HIV serologies, RPR, COVID-19, rapid flu, tick panel was requested as well, negative Lyme, Ehrlichia and Rickettsia still pending. Negative MICHAEL, Samuel 1, SSA, SSB, Connors, MONOTYPE MACHINIST, SCL 70, centromere, TPO antibodies. Normal C3, C4. Elevated CH 50 at >60. Still pending NT dsDNA antibody. Mitochondrial DNA. TSH normal Noted mild chronic hyperbilirubinemia, better today bilirubin at 2.8. Mild transaminitis. Negative basic UDS, no elevation of EtOH. Was noted to have episodes of hypoxia, with sleep, but sometimes also while awake with oxygen saturation decreasing into the 80s, not necessarily with exertion. Received CPAP support. Nasal cannula support. Denied symptoms that could indicate respiratory infection. With abnormal D-dimer at 1.97. Pulmonary perfusion imaging obtained during the hospitalization with VQ scan also negative for PE. Without evidence of DVT on venous duplex. Some possibility of sleep apnea given hypoxia while asleep, but not explaining symptoms or episodes of hypoxia while awake. Additional studies included CT chest abdomen pelvis, with noted small right- sided pleural effusion, trace left-sided pleural effusion, moderate cardiomegaly. Bilateral nonobstructing nephrolithiasis with small calculi measuring up to 4 mm. Small mount of free fluid, likely from third spacing. Gallbladder wall thickening and/or pericholecystic fluid. No radiopaque stones. Perhaps secondary to edema. Did not have abdominal pain. Due to recent symptoms of weight loss, from 190 to 169 pounds in the last 3-5 weeks, night sweats. CT neck was also obtained, without definite enlarged lymph nodes. Episode of nonsustained V. tach was started initially on beta-yovani. During hospitalization with noted soft blood pressures on 12/21. Initially was started on valsartan, metoprolol, spironolactone, however, these medications were held due to blood pressures as low as 62 MAP, and so far not resumed. Noted also with some worsening renal function, creatinine up to 1.4-1.5 today. Given abnormal stress testing, although this may not entirely explain new cardiomyopathy as well, severely decreased ejection fraction, as well as severe contrast allergy, and needing additional work-up including possible cardiac MRI which is not available here. Transfer was discussed by cardiology at higher level facility with a forest law and policy professor at [facility] where he was accepted and transferred for additional assessment and treatment this morning. EMILI was also considered for additional assessment of valvular abnormality with moderately severe MVR, possibly severe TVR. Blood cultures were requested, so far negative. Of note during hospitalization he had requested to resume buprenorphine which was temporarily resumed, but due to hypotension, mild lethargy last night medication was held alongside other medications could affect blood pressure. Today was resumed at lower dose of 4 mg, compared to usual dose reported by patient of 8 mg twice daily when he again voiced concern to avoid going into withdrawal. Physical Exam Narrative: Family at bedside Const: COMMON NORMALS: alert GENERAL APPEARANCE: cooperative ORIENTATION/CONSCIOUSNESS: Yes awake HENMT: COMMON NORMALS: normocephalic, EAC's normal, Normal external nose present and moist oral mucous membranes HEAD & SCALP: normocephalic NOSE: Normal external nose present EXTERNAL AUDITORY CANAL: EAC's normal Neck/C-Spine: COMMON NORMALS: no meningeal signs Chest: CHEST: Yes Symmetrical chest wall rise Resp: COMMON NORMALS: clear to auscultation bilaterally AUSCULTATION: clear to auscultation bilaterally Cardio: COMMON NORMALS: regular rate, regular rhythm and No murmurs present (Cardio) RATE: regular rate RHYTHM: regular rhythm GI: COMMON NORMALS: Normal to inspection, nondistended, normoactive bowel sounds present, Soft to palpation and non-tender PALPATION: Yes Soft to palpation Extremity: COMMON NORMALS: no pedal edema Neuro: COMMON NORMALS: moves all extremities SENSORIUM/ORIENTATION: Yes alert MENINGEAL SIGNS: Yes no meningeal signs Psych: COMMON NORMALS: mental status grossly normal Skin: COMMON NORMALS: no wounds RASHES: no rashes TS Data Studies Completed and Pending Pending at discharge Category Date Time Status Sestamibi Stress Test Request Routine Exams 12/20/21 12:56 Ordered AMA [Mitochondrial AB Screen] Stat Lab 12/19/21 09:05 Received MICHAEL Profile Rheumatology Stat Lab 12/19/21 09:05 Results Blood Culture Stat Lab 12/19/21 09:05 Results Tick Panel Stat Lab 12/19/21 09:05 Results Labs from last 24 hours 12/22/21 12/22/21 12/22/21 04:40 04:40 04:40 WBC 6.3 RBC 5.19 Hgb 15.3 Hct 46.7 MCV 90.0 MCH 29.5 MCHC 32.8 RDW 12.9 Plt Count 183 MPV 10.3 Neut % (Auto) 53.4 Lymph % (Auto) 33.1 [place] % (Auto) 7.3 Eos % (Auto) 5.1 Baso % (Auto) 0.8 Neut # (Auto) 3.38 Lymph # (Auto) 2.1 [place] # (Auto) 0.5 Eos # (Auto) 0.3 Baso # (Auto) 0.1 Nucleated RBC % (auto) 0 Nucleated RBCs # 0.0 Sodium 138 Potassium 3.9 Chloride 101 Carbon Dioxide 31 H Anion Gap 9.9 BUN 32 H Creatinine 1.5 H GFR Calculation 51.3 L Glucose 134 H Calculated Osmolality 295 Calcium 8.5 Phosphorus 4.0 Magnesium 2.0 Total Bilirubin 0.8 AST 33 ALT 54 H Alkaline Phosphatase 73 Creatine Kinase 35 L NT-Pro-B Natriuret Pep 1102 H Total Protein 5.1 L Albumin 3.0 L Globulin 2.1 Completed Studies During Hospitalization Category Date Time Status CT chest abd pel wo con Stat Cat Scan 12/19/21 02:[address] neck wo con [id number] Stat Cat Scan 12/19/21 02:13 Completed Cardiac Stress Test MIBI [Sestamibi Stress Test Request Exams 12/21/21 07:37 Completed ] Routine XR chest 1V portable [id number] Urgent Exams 12/18/21 22:33 Completed NM misty perf SPECT r/s* [id number] Routine Nuc Med 12/21/21 12:56 Completed NM pul vent and perfus* [id number] Routine Nuc Med 12/19/21 02:44 [place] [id number] Routine Ultrasound 12/19/21 08:12 Completed CV. echo complete* [id number] Routine Ultrasound 12/19/21 02:44 Completed Laboratory Last Values WBC 6.3 10^3/uL (4.0-10.0) 12/22/21 04:40 RBC 5.19 10^6/uL (4.1-5.3) 12/22/21 04:40 Hgb 15.3 g/dL (11.7-16.6) 12/22/21 04:40 Hct 46.7 % (42.0-52.0) 12/22/21 04:40 MCV 90.0 fl (80-94) 12/22/21 04:40 MCH 29.5 pg (28.0-34.0) 12/22/21 04:40 MCHC 32.8 g/dL (30.0-36.0) 12/22/21 04:40 RDW 12.9 % (12.1-15.1) 12/22/21 04:40 Plt Count 183 10^3/cmm (130-400) 12/22/21 04:40 MPV 10.3 fL (7.4-10.4) 12/22/21 04:40 Neut % (Auto) 53.4 % 12/22/21 04:40 Lymph % (Auto) 33.1 % 12/22/21 04:40 [place] % (Auto) 7.3 % 12/22/21 04:40 Eos % (Auto) 5.1 % 12/22/21 04:40 Baso % (Auto) 0.8 % 12/22/21 04:40 Neut # (Auto) 3.38 10^3/uL (1.8-7.7) 12/22/21 04:40 Lymph # (Auto) 2.1 10^3/uL (0.8-4.8) 12/22/21 04:40 [place] # (Auto) 0.5 10^3/uL (0.2-0.9) 12/22/21 04:40 Eos # (Auto) 0.3 10^3/uL (0.0-0.8) 12/22/21 04:40 Baso # (Auto) 0.1 10^3/uL (0.0-0.1) 12/22/21 04:40 Nucleated RBC % (auto) 0 % 12/22/21 04:40 Nucleated RBCs # 0.0 /100WBC 12/22/21 04:40 ESR 1 mm/hr (0-10) 12/19/21 04:44 PT 15.70 SECONDS (12.1-14.9) H 12/19/21 04:44 INR 1.21 (0.8-1.2) H 12/19/21 04:44 APTT 30.1 SECONDS (23.9-36.7) 12/19/21 04:44 Fibrinogen 249 mg/dL (174-498) 12/19/21 04:44 Fibrin Degrad Products Neg, <10 ug/mL (NEG) 12/19/21 05:43 D-Dimer 1.97 ug/mIFEU (0-0.59) H 12/19/21 04:44 Specimen Type Arterial 12/19/21 09:50 Sample Site Radial, right 12/19/21 09:50 ABG pH 7.47 (7.35-7.45) H 12/19/21 09:50 ABG pCO2 34.9 mmHg (35-45) L 12/19/21 09:50 ABG pO2 88.3 mmHg (80.0-100.0) 12/19/21 09:50 ABG HCO3 25.4 mmol/L (22-26) 12/19/21 09:50 ABG Base Excess 2.2 mmol/L (-2.0-2.0) H 12/19/21 09:50 Roberto Test Pos 12/19/21 09:50 Hematocrit 52.8 % (42-52) H 12/19/21 09:50 O2 Delivery Device Room air 12/19/21 09:50 Sales Associate ID Hinja 12/19/21 09:50 Sodium 138 mmol/L (136-145) 12/22/21 04:40 Potassium 3.9 mmol/L (3.5-5.1) 12/22/21 04:40 Chloride 101 mmol/L (98-107) 12/22/21 04:40 Carbon Dioxide 31 mmol/L (22-29) H 12/22/21 04:40 Anion Gap 9.9 (5-19) 12/22/21 04:40 BUN 32 mg/dL (6-20) H 12/22/21 04:40 Creatinine 1.5 mg/dL (0.7-1.2) H 12/22/21 04:40 GFR Calculation 51.3 mL/min (90-130) L 12/22/21 04:40 Glucose 134 mg/dL (65-115) H 12/22/21 04:40 POC Glucose 123 mg/dL (70-110) H 12/20/21 21:18 Calculated Osmolality 295 mOsm/kg (285-295) 12/22/21 04:40 Calcium 8.5 mg/dL (8.5-10.5) 12/22/21 04:40 Phosphorus 4.0 mg/dL (2.5-4.5) 12/22/21 04:40 Magnesium 2.0 mg/dL (1.7-2.3) 12/22/21 04:40 Ferritin 227 ng/mL (30-400) 12/19/21 09:05 Total Bilirubin 0.8 mg/dL (0.15-1.2) 12/22/21 04:40 Direct Bilirubin 0.40 mg/dL (0.00-0.30) H 12/19/21 04:44 GGT 52 U/L (8-61) 12/19/21 04:44 AST 33 U/L (0-40) 12/22/21 04:40 ALT 54 U/L (0-41) H 12/22/21 04:40 Alkaline Phosphatase 73 IU/L (40-130) 12/22/21 04:40 Lactate Dehydrogenase 174 U/L (135-225) 12/19/21 04:44 Lactate Dehydrogenase Cancelled 12/19/21 04:44 Creatine Kinase 35 U/L (39-308) L 12/22/21 04:40 Troponin T Baseline 14 ng/L (0-15) 12/18/21 23:11 Troponin T 120 Minute 14.51 ng/L (0-15) 12/19/21 01:40 Delta Troponin T Not Reportable 12/19/21 01:40 Troponin T Hi Sens 6Hr 14.34 ng/L (0-15) 12/19/21 04:44 Troponin T Hi Sens 6Hr Delta Not Reportable 12/19/21 04:44 C-Reactive Protein 4.5 mg/L (0.0-4.9) 12/19/21 04:44 C-Reactive Protein 4.6 mg/L (0.0-4.9) 12/19/21 04:44 NT-Pro-B Natriuret Pep 1102 pg/mL (0-125) H 12/22/21 04:40 Total Protein 5.1 g/dL (6.6-8.7) L 12/22/21 04:40 Albumin 3.0 g/dL (3.5-5.2) L 12/22/21 04:40 Globulin 2.1 g/dL (1.3-4.6) 12/22/21 04:40 Lipase 20 U/L (13-60) 12/19/21 04:44 Procalcitonin 0.07 ng/mL (0-0.5) 12/19/21 04:44 TSH 1.05 uIU/mL (0.27-4.20) 12/18/21 23:28 Urine Color Yellow (Yellow) 12/19/21 13:16 Urine Appearance Clear (CLEAR) 12/19/21 13:16 Urine pH 5 (5-7) 12/19/21 13:16 Ur Specific [place] 1.010 (1.005-1.030) 12/19/21 13:16 Urine Protein Neg (Negative) 12/19/21 13:16 Urine Glucose (UA) Norm (Normal) 12/19/21 13:16 Urine Ketones Negative (Negative) 12/19/21 13:16 Urine Blood Neg (Negative) 12/19/21 13:16 Urine Nitrate Negative (Negative) 12/19/21 13:16 Urine Bilirubin Neg (Negative) 12/19/21 13:16 Urine Urobilinogen Norm mg/dL (Negative) 12/19/21 13:16 Ur Leukocyte Esterase Negative (Negative) 12/19/21 13:16 Nasal Influ A H1 2008 PCR Not detected (NOT DETECT) 12/19/21 13:16 Urine Opiates Screen Negative ng/mL (Negative) 12/19/21 02:28 Ur Barbiturates Screen Negative ng/mL (Negative) 12/19/21 02:28 Ur Phencyclidine Scrn Negative ng/mL (Negative) 12/19/21 02:28 Ur Amphetamines Screen Negative ng/mL (Negative) 12/19/21 02:28 U Benzodiazepines Scrn Negative ng/mL (Negative) 12/19/21 02:28 Urine Cocaine Screen Negative ng/mL (Negative) 12/19/21 02:28 U Marijuana (THC) Screen Negative ng/mL (Negative) 12/19/21 02:28 Ethyl Alcohol < 10 mg/dL (0-10) 12/19/21 04:44 MICHAEL IFA Animal Tis Res Negative (NEGATIVE) 12/19/21 09:05 SAMUEL-1 Antibody <1.0 neg AI (<1.0 NEG) 12/19/21 09:05 SS-A Antibody <1.0 neg AI (<1.0 NEG) 12/19/21 09:05 SS-B Antibody <1.0 neg AI (<1.0 NEG) 12/19/21 09:05 Sm (Connors) Antibody <1.0 neg AI (<1.0 NEG) 12/19/21 09:05 MONOTYPE MACHINIST Antibody <1.0 neg AI (<1.0 NEG) 12/19/21 09:05 Scl-70 Antibody <1.0 neg AI (<1.0 NEG) 12/19/21 09:05 Centromere B Antibody <1.0 neg AI (<1.0 NEG) 12/19/21 09:05 Thyroid Peroxidase Ab <1 IU/mL (<9) 12/19/21 09:05 Complement C3c 93 mg/dL (82-185) 12/19/21 09:05 Complement C4c 19 mg/dL (15-53) 12/19/21 09:05 CH50 Classical Pathway >60 U/mL (31-60) H 12/19/21 09:05 RPR Nonreactive (Nonreactive) 12/19/21 09:05 Adenovirus (PCR) Not detected (NOT DETECT) 12/19/21 13:16 Lyme Ab (Western Blot) <0.90 index 12/19/21 09:05 Lyme IgG (Western Blot 2) <0.90 index 12/19/21 09:05 C. pneumoniae DNA (PCR) Not detected (NOT DETECT) 12/19/21 13:16 Coronavirus 229E (PCR) Not detected (NOT DETECT) 12/19/21 13:16 Hepatitis A IgM Ab Non-reactive (Nonreactive) 12/19/21 09:05 Hep Bs Antigen Non-reactive (Nonreactive) 12/19/21 09:05 Hep B Core IgM Ab Non-reactive (Nonreactive) 12/19/21 09:05 Hepatitis C Antibody Non-reactive (Nonreactive) 12/19/21 09:05 HIV 1&2 Ab & HIV 1 Ag Non-reactive (Non-Reactiv) 12/19/21 09:05 HIV 1&2 Antibody Non-reactive (Non-Reactiv) 12/19/21 09:05 Human Metapneumovir PCR Not detected (NOT DETECT) 12/19/21 13:16 Influenza A (H1) PCR Not detected (NOT DETECT) 12/19/21 13:16 Influenza A (H3) PCR Not detected (NOT DETECT) 12/19/21 13:16 Influenza Type A Ag Cancelled 12/19/21 13:16 Influenza Type A (PCR) Not detected (NOT DETECT) 12/19/21 13:16 Influenza Type B Ag Cancelled 12/19/21 13:16 Influenza Type B (PCR) Not detected (NOT DETECT) 12/19/21 13:16 M. pneumoniae (PCR) Not detected (NOT DETECT) 12/19/21 13:16 Parainfluenza 1 (PCR) Not detected (NOT DETECT) 12/19/21 13:16 Parainfluenza 2 (PCR) Not detected (NOT DETECT) 12/19/21 13:16 Parainfluenza 3 (PCR) Not detected (NOT DETECT) 12/19/21 13:16 Parainfluenza 4 (PCR) Not detected (NOT DETECT) 12/19/21 13:16 RSV Type A (PCR) Not detected (NOT DETECT) 12/19/21 13:16 RSV Type B (PCR) Not detected (NOT DETECT) 12/19/21 13:16 Entero/Rhino (PCR) Not detected (NOT DETECT) 12/19/21 13:16 SARS-CoV-2 (PCR) Not detected (NOT DETECT) 12/19/21 13:16 Radiology Impressions Chest X-Ray 12/18/21 22:33 IMPRESSION: No acute abnormality demonstrated. Chest/Abdomen/Pelvis CT 12/19/21 02:12 IMPRESSION: 1. Small right-sided pleural effusion. Trace left-sided pleural effusion. 2. Moderate cardiomegaly, pronounced for age. Recommend cardiac eval. IMPRESSION: 1. Bilateral nonobstructing nephrolithiasis with small calculi measuring up to 4 mm. 2. Small amount of free fluid, likely from third-spacing. 3. Gallbladder wall thickening and or pericholecystic fluid. No radiopaque stones. Perhaps secondary to edema, however in the event there is right upper quadrant pain, correlate with ultrasound. COMMENTS: Consistent with the [employer]'s Incidental Findings Committee white paper (J Am Lili Radiol 2018): Any incidental renal lesion less than 1 cm or classified as too small to characterize, or any incidental cystic renal lesion characterized as simple-appearing, is likely benign. No follow-up imaging is recommended for these lesions per consensus recommendations based on imaging criteria. Neck CT 12/19/21 02:13 IMPRESSION: No acute findings. No definite pathologically enlarged lymph nodes are seen. Pulmonary Perfusion Imaging 12/19/21 02:44 IMPRESSION: Normal perfusion. No evidence of pulmonary embolism. Venous Duplex 12/19/21 08:12 IMPRESSION: No evidence of deep vein thrombosis. Recent Clincial Data Last Vital Signs Temp 97.6 F 12/22/21 08:00 Pulse 94 12/22/21 08:00 Resp 19 H 12/22/21 08:00 BP 100/76 12/22/21 08:00 Pulse Ox 97 12/22/21 08:00 Vital Signs Temp Pulse Resp BP Pulse Ox 12/22/21 08:00 97.6 F 94 19 H 100/76 97 12/22/21 07:57 89 17 97 Intake & Output/Weight 12/20/21 12/21/21 12/22/21 12/23/21 06:59 06:59 06:59 06:59 Intake Total 1220 / 1220 200 / 200 950 / 950 360 / 360 Output Total 1950 / 1950 350 / 350 Balance 1220 / 1220 -1750 / -1750 600 / 600 360 / 360 Vitals Last Vital Signs Temp 97.6 F 12/22/21 08:00 Pulse 94 12/22/21 08:00 Resp 19 H 12/22/21 08:00 BP 100/76 12/22/21 08:00 Pulse Ox 97 12/22/21 08:00 TS Medications Medications Discontinued Medications Albuterol Sulfate (Albuterol 8 Gm Mdi) 2 puff INHALATION QID.RESPIRATORY SUNITA Last Admin: 12/21/21 15:55 Dose: Not Given Documented by: Albuterol Sulfate (Albuterol 8 Gm Mdi) 2 puff INHALATION Q4H.RESPIRATORY PRN PRN Reason: sob Albuterol/Ipratropium (Ipratropium-Albuterol 3 Ml Neb) 3 ml INHALATION Q6H PRN PRN Reason: SHORTNESS OF BREATH Aminophylline (Aminophylline 25 Mg/Ml Sdv 10 Ml) 25 mg IVP Q2M PRN PRN Reason: see dose instructions Stop: 12/22/21 07:37 Aspirin (Aspirin 81 Mg Ec Tablet) 81 mg PO DAILY [facility] Last Admin: 12/22/21 08:42 Dose: 81 mg Documented by: Atorvastatin Calcium (Atorvastatin 40 Mg Tablet) 40 mg PO BEDTIME SUNITA Last Admin: 12/21/21 20:58 Dose: 40 mg Documented by: Buprenorphine/Naloxone (Buprenorphine-Naloxone 4-1 Mg Film) 1 each SUBLINGUAL DAILY [facility] Last Admin: 12/22/21 11:20 Dose: 1 each Documented by: Dicyclomine HCl (Dicyclomine 20 Mg Tablet) 20 mg PO QID PRN PRN Reason: Stomach Cramps Enoxaparin Sodium (Enoxaparin 80 Mg/0.8 Ml Syringe) 70 mg SUBCUT BID [facility] Last Admin: 12/19/21 09:43 Dose: 70 mg Documented by: Enoxaparin Sodium (Enoxaparin 80 Mg/0.8 Ml Syringe) 70 mg SUBCUT Q12H [facility] Last Admin: 12/21/21 01:18 Dose: Not Given Documented by: Enoxaparin Sodium (Enoxaparin 40 Mg/0.4 Ml Syringe) 40 mg SUBCUT Q24H [facility] Last Admin: 12/22/21 08:42 Dose: 40 mg Documented by: Escitalopram Oxalate (Escitalopram 10 Mg Tablet) 20 mg PO DAILY [facility] Escitalopram Oxalate (Escitalopram 10 Mg Tablet) 20 mg PO BEDTIME [facility]ITA Escitalopram Oxalate (Escitalopram 10 Mg Tablet) 30 mg PO BEDTIME [facility] Escitalopram Oxalate (Escitalopram 10 Mg Tablet) 20 mg PO BEDTIME [facility]ITA Escitalopram Oxalate (Escitalopram 10 Mg Tablet) 30 mg PO BEDTIME SUNITA Escitalopram Oxalate (Escitalopram 10 Mg Tablet) 20 mg PO BEDTIME [facility] Last Admin: 12/21/21 20:58 Dose: 20 mg Documented by: Furosemide (Furosemide 10 Mg/Ml Sdv 10ml) 60 mg IVP Q12H [facility] Furosemide (Furosemide 10 Mg/Ml Sdv 10ml) 60 mg IVP Q24H [facility] Last Admin: 12/21/21 01:18 Dose: Not Given Documented by: Furosemide (Furosemide 10 Mg/Ml Sdv 10ml) 40 mg IVP Q24H [facility] Last Admin: 12/22/21 08:42 Dose: 40 mg Documented by: Lactated Ringer's (Lactated Ringers) 500 mls @ 999 mls/hr IV .Q31M ONE Stop: 12/19/21 03:00 Last Infusion: 12/19/21 03:00 Dose: Infused Documented by: Magnesium Sulfate (Magnesium Sulfate Premix) 2 gm in 50 mls @ 50 mls/hr IV ONCE ONE Stop: 12/19/21 09:12 Last Admin: 12/19/21 09:42 Dose: 50 mls/hr Documented by: Doxycycline Hyclate 100 mg/ (Sodium Chloride) 100 mls @ 100 mls/hr IV Q12H [facility]; Protocol Last Infusion: 12/22/21 01:48 Dose: Infused Documented by: Sodium Chloride (Sodium Chloride 0.9%) 250 mls @ 150 mls/hr IV ONCE ONE Stop: 12/21/21 17:43 Last Infusion: 12/21/21 18:03 Dose: Infused Documented by: Sodium Chloride (Sodium Chloride 0.9%) 250 mls @ 100 mls/hr IV ONCE ONE Stop: 12/21/21 20:31 Last Admin: 12/21/21 19:27 Dose: Not Given Documented by: Sodium Chloride (Sodium Chloride 0.9% (100 Ml)) 100 mls @ 200 mls/hr IV ONCE ONE Stop: 12/21/21 18:44 Last Infusion: 12/21/21 19:28 Dose: Infused Documented by: Losartan Potassium (Losartan 50 Mg Tablet) 25 mg PO DAILY [facility] Last Admin: 12/21/21 09:43 Dose: 25 mg Documented by: Magnesium Lactate (Magnesium Lactate 84 Mg Tablet) 84 mg PO BID [facility] Last Admin: 12/22/21 08:42 Dose: 84 mg Documented by: Metoprolol Tartrate (Metoprolol Tartrate 25 Mg Tablet) 12.5 mg PO BID [facility] Last Admin: 12/21/21 17:53 Dose: Not Given Documented by: Naproxen (Naproxen 500 Mg Tablet) 500 mg PO BID PRN PRN Reason: pain Nitroglycerin (Nitroglycerin 0.4 Mg Sublingual Tablet) 0.4 mg SUBLINGUAL Q5M PRN PRN Reason: CHEST PAIN Stop: 12/22/21 07:37 Non-Formulary Medication (Non-Formulary Medication) 2 each PO BID [facility] [facility] Non-Formulary Medication (Non-Formulary Medication) 1 each NOSTRIL-B BID [facility] Non-Formulary Medication Tamsulosin 0.4 Mg 2 each PO DAILY [facility] Non-Formulary Medication Escitalopram 10 Mg 1 each PO DAILY [facility] Non-Formulary Medication Buprenorphine 8 Mg 1 each SUBLINGUAL BID [facility] Last Admin: 12/21/21 17:54 Dose: Not Given Documented by: Non-Formulary Medication Trazodone 0.5 - 1 each PO BEDTIME PRN PRN Reason: SLEEP Non-Formulary Medication Dicyclomine 20 Mg 1 each PO Q6H [facility] Last Admin: 12/22/21 11:18 Dose: 1 each Documented by: Non-Formulary Medication Omeprazole 20mg 1 each PO DAILY [facility] Non-Formulary MedicationAdvair 100/50 1 each INHALATION BID [facility] Last Admin: 12/22/21 08:44 Dose: 1 each Documented by: Non-Formulary Medication Fluticasone 1 each INTRANASAL BID [facility] Last Admin: 12/22/21 08:43 Dose: 1 each Documented by: Non-Formulary Medication (Buprenorphine Hcl) 8 mg SUBLINGUAL BID [facility] Last Admin: 12/20/21 10:43 Dose: Not Given Documented by: Non-Formulary Medication ( Escitalopram Oxalate 10 Mg Tablet) 10 mg PO DAILY [facility] Non-Formulary Medication (Omeprazole) 20 mg PO DAILY [facility] Last Admin: 12/22/21 08:45 Dose: 20 mg Documented by: Non-Formulary Medication (Fluticasone Propion-Salmeterol [Advair Diskus]) 1 inh INHALATION BID [facility] Last Admin: 12/22/21 08:44 Dose: Not Given Documented by: Non-Formulary Medication (Escitalopram Oxalate) 10 mg PO BEDTIME [facility] Ondansetron HCl (Ondansetron 2 Mg/Ml Sdv 2 Ml) 4 mg IVP Q6H PRN PRN Reason: NAUSEA AND VOMITING Last Admin: 12/20/21 23:27 Dose: 4 mg Documented by: Ondansetron HCl (Ondansetron 2 Mg/Ml Sdv 2 Ml) 4 mg IVP Q2M PRN PRN Reason: NAUSEA Regadenoson (Regadenoson 0.4 Mg/5 Ml Syringe) 0.4 mg IVP ONCE PRN PRN Reason: Lexiscan Stress Test Last Admin: 12/21/21 08:01 Dose: 0.4 mg Documented by: Simethicone (Simethicone 80 Mg Chew) 80 mg PO ONCE ONE Stop: 12/20/21 23:55 Last Admin: 12/21/21 00:19 Dose: 80 mg Documented by: Spironolactone (Spironolactone 25 Mg Tablet) 25 mg PO DAILY [facility] Last Admin: 12/21/21 09:44 Dose: 25 mg Documented by: Tamsulosin HCl (Tamsulosin 0.4 Mg Capsule) 0.4 mg PO BID [facility] Tamsulosin HCl (Tamsulosin 0.4 Mg Capsule) 0.4 mg PO BID [facility] Last Admin: 12/21/21 17:58 Dose: Not Given Documented by: Trazodone HCl (Trazodone 50 Mg Tablet) 50 mg PO DAILY [facility] Trazodone HCl (Trazodone 50 Mg Tablet) 50 mg PO BEDTIME PRN PRN Reason: for sleep Allergies Iodinated Contrast Media Allergy (Severe, Verified 12/19/21 00:42) ALGY-Swell Lip/Tongue/Throat Home Medications albuterol sulfate 90 mcg/actuation aerosol inhaler 2 puff INHALATION QID #18 gm 05/12/20 [Rx Confirmed 12/19/21] fluticasone 100 mcg-salmeterol 50 mcg/dose blistr powdr for inhalation (Advair Diskus) 1 inh INHALATION BID #60 each 05/12/20 [Rx Confirmed 12/19/21] buprenorphine HCl 8 mg sublingual tablet 8 mg SUBLINGUAL BID 12/19/21 [History Confirmed 12/19/21] dicyclomine 20 mg tablet 20 mg PO QID PRN 12/19/21 [History Confirmed 12/19/21] escitalopram oxalate 20 mg tablet 20 mg PO DAILY 12/19/21 [History Confirmed 12/19/21] omeprazole 20 mg capsule,delayed release 20 mg PO BEDTIME 12/19/21 [History Confirmed 12/19/21] tamsulosin 0.4 mg capsule 0.4 mg PO BID 12/19/21 [History Confirmed 12/19/21] trazodone 50 mg tablet 50 mg PO BEDTIME PRN 12/19/21 [History Confirmed 12/19/21] Discharge Plan Discharge Patient Disposition: Xfer Short-Term Hosp Condition: Fair Prescriptions: No Action fluticasone propion-salmeterol [Advair Diskus] 100-50 mcg/dose blister with device 1 inh INHALATION BID Qty: 60 3RF albuterol sulfate 90 mcg/actuation HFA aerosol inhaler 2 puff INHALATION QID Qty: 18 2RF tamsulosin 0.4 mg capsule 0.4 mg PO BID 0RF dicyclomine 20 mg tablet 20 mg PO QID PRN (Reason: Stomach Cramps) 0RF omeprazole 20 mg capsule,delayed release(DR/EC) 20 mg PO BEDTIME 0RF escitalopram oxalate 20 mg tablet 20 mg PO DAILY 0RF Rx Instructions: Take with 10mg once daily buprenorphine HCl 8 mg tablet, sublingual 8 mg SUBLINGUAL BID 0RF trazodone 50 mg Tablet 50 mg PO BEDTIME PRN (Reason: Insomnia) 0RF Referrals: Mckay Rea MD [Physician] - ([facility] taking new [facility] 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
[2021-12-23 14:56] LABS: DNA AB (DS) CRITHIDIA,IFA NEGATIVE (NEGATIVE)
[2021-12-23 18:17] LABS: RMSF IGG NOT DETECTED; RMSF IGM NOT DETECTED
[2021-12-23 21:03] LABS: E. Chaffeensis AB IGG <1:64; E. Chaffeensis AB IGM <1:20
== END 2021-12-22 11:40 | disposition short-term general hospital (02) | DRG 292 ==
LOC: ER 12-19 01:16 → MEDSURG 12-19 01:55 → CSU 12-20 12:55
PROVIDERS: Family Medicine; Admitting Provider Internal Medicine; Emergency Provider Emergency Medicine; Visit Provider Internal Medicine
DX: I50.23 Acute on chronic systolic (congestive) heart failure (principal); I42.9 Cardiomyopathy, unspecified; I47.2 Ventricular tachycardia; I50.810 Right heart failure, unspecified; N40.1 Benign prostatic hyperplasia with lower urinary tract symptoms; N39.498 Other specified urinary incontinence; R39.11 Hesitancy of micturition; F10.11 Alcohol abuse, in remission; F41.9 Anxiety disorder, unspecified; Z87.891 Personal history of nicotine dependence; F12.11 Cannabis abuse, in remission; R59.0 Localized enlarged lymph nodes; J45.909 Unspecified asthma, uncomplicated; E86.0 Dehydration; I08.1 Rheumatic disorders of both mitral and tricuspid valves; R94.31 Abnormal electrocardiogram [ECG] [EKG]; Z79.51 Long term (current) use of inhaled steroids; Z79.891 Long term (current) use of opiate analgesic
CPT/HCPCS: 36415; 36416; 36600; 70490; 71045; 71250; 74176; 78014; 78452; 80053; 80074; 80306; 80307; 81003; 82248; 82550; 82728; 82803; 82962; 82977; 83516; 83615; 83690; 83735; 83880; 84100; 84145; 84443; 84484; 85025; 85362; 85378; 85384; 85610; 85651; 85730; 86140; 86160; 86162; 86235; 86255; 86376; 86592; 86617; 86618; 86666; 86757; 87040; 87486; 87581; 87633; 87806; 93005; 93017; 93306; 93970; 94640; 94660; 96372; 99285; A9500; A9540; A9567; J0573; J1650; J1940; J2405; J2785; J3475; J3490; J3535; J7050